=== PATIENT | female | born 1960 | race Caucasian/White ===

== ENCOUNTER → 2020-05-30 09:50 | Outpatient (BNVA) | payer OTHER, SELFPAY | PROVIDERS: Family Provider Nurse Practitioner Family; PCP Nurse Practitioner Family; Visit Provider Nurse Practitioner Women's Health | DX: R87.619 Unspecified abnormal cytological findings in specimens from cervix uteri (principal) | CPT/HCPCS: 88175 ==

== ENCOUNTER 2020-09-18 10:10 | Outpatient (CLI) | payer OTHER, SELFPAY ==
--- NOTE | 2020-09-18 10:19 | MM_ITS ---
WS: [id number] SCREENING DIGITAL MAMMOGRAM WITH CAD HISTORY: SCREENING COMPARISON: 07/09/2019 and April 10, 2015 Bilateral CC and MLO views submitted. Computer aided detection analyzed. Breast composition: The breasts are heterogeneously dense, which may obscure small masses. Partially visualized nodule near 12:00 RIGHT breast. Nodule measures 8 mm. No additional suspicious findings. MM/[place] [id number] IMPRESSION: BI-RADS: 0-Incomplete: Need additional imaging evaluation FOLLOW UP: Need Additional Imaging RIGHT breast: Spot compression views (CC and MLO). True ML. Ultrasound to follo w if abnormality persists.
== END 2020-09-18 10:11 | disposition home or self-care (01) ==
LOC: RADSHAW 10:12
PROVIDERS: PCP Nurse Practitioner Family; Visit Provider Nurse Practitioner Family
DX: Z12.31 Encounter for screening mammogram for malignant neoplasm of breast (principal); N63.15 Unspecified lump in the right breast, overlapping quadrants
CPT/HCPCS: 77067

== ENCOUNTER 2020-10-05 08:33 | Outpatient (CLI) | payer OTHER, SELFPAY ==
--- NOTE | 2020-10-05 09:00 | MM_ITS ---
WS: [id number] ADDITIONAL VIEWS RIGHT BREAST RIGHT breast ultrasound, limited HISTORY: abnormal mammo COMPARISON: 09/18/2020, 07/09/2019 and 07/11/2015 Compression views right CC and MLO projection. True ML also submitted. Asymmetry central to the nipple on the CC projection nearly completely resolves. There are a few scat tered hypodensities which are slightly different as compared to prior studies. Ultrasound to follow. RIGHT breast ultrasound, limited. Hypoechoic nodule measuring 7 x 4 x 7 mm. Nodule is at 12:00, 3 cm from the nipple posteriorly. This may correspond to the asymmetry seen on the mammogram. MM/[place] [id number] IMPRESSION: BI-RADS: 3-Probably Benign FOLLOW-UP: 6 Month Follow-up Hypoechoic nodule 12:00 3 cm from the nipple seen by ultrasound. By imaging thi s is probably a complex cyst. This may correspond to the mammographic abnormali ty. I cannot be certain this is the same nodule as I cannot identified on the C C projection. Therefore, recommend 6 month RIGHT mammogram and ultrasound follo w-up.
--- NOTE | 2020-10-05 09:30 | US_ITS ---
WS: [id number] ADDITIONAL VIEWS RIGHT BREAST RIGHT breast ultrasound, limited HISTORY: abnormal mammo COMPARISON: 09/18/2020, 07/09/2019 and 07/11/2015 Compression views right CC and MLO projection. True ML also submitted. Asymmetry central to the nipple on the CC projection nearly completely resolves. There are a few scat tered hypodensities which are slightly different as compared to prior studies. Ultrasound to follow. RIGHT breast ultrasound, limited. Hypoechoic nodule measuring 7 x 4 x 7 mm. Nodule is at 12:00, 3 cm from the nipple posteriorly. This may correspond to the asymmetry seen on the mammogram. US/US breast RT limited* [id number] IMPRESSION: BI-RADS: 3-Probably Benign FOLLOW-UP: 6 Month Follow-up Hypoechoic nodule 12:00 3 cm from the nipple seen by ultrasound. By imaging thi s is probably a complex cyst. This may correspond to the mammographic abnormali ty. I cannot be certain this is the same nodule as I cannot identified on the C C projection. Therefore, recommend 6 month RIGHT mammogram and ultrasound follo w-up.
== END 2020-10-05 08:34 | disposition home or self-care (01) ==
LOC: RADSHAW 08:34
PROVIDERS: PCP Nurse Practitioner Family; Visit Provider Nurse Practitioner Family
DX: R92.8 Other abnormal and inconclusive findings on diagnostic imaging of breast (principal); N63.15 Unspecified lump in the right breast, overlapping quadrants
CPT/HCPCS: 76642; 77065

== ENCOUNTER → 2021-01-12 10:43 | Outpatient (BNVA) | payer OTHER, SELFPAY | PROVIDERS: PCP Nurse Practitioner Family; Visit Provider Nurse Practitioner Family | DX: Z13.6 Encounter for screening for cardiovascular disorders (principal); K21.9 Gastro-esophageal reflux disease without esophagitis; I10 Essential (primary) hypertension; Z79.899 Other long term (current) drug therapy | CPT/HCPCS: 80061; 82947; 83036 ==

== ENCOUNTER → 2021-02-12 11:24 | Outpatient (BNVA) | payer OTHER, SELFPAY | PROVIDERS: PCP Nurse Practitioner Family; Referring Provider Nurse Practitioner Family; Visit Provider Orthopaedic Surgery | DX: M25.559 Pain in unspecified hip (principal); M25.562 Pain in left knee; G89.29 Other chronic pain | CPT/HCPCS: 73502; 73560; 73565 ==

== ENCOUNTER → 2021-05-08 11:50 | Outpatient (BNVA) | payer SELFPAY | PROVIDERS: PCP Nurse Practitioner Family; Visit Provider Dermatology | DX: Z01.89 Encounter for other specified special examinations (principal) ==

== ENCOUNTER → 2021-05-31 09:15 | Outpatient (BNVA) | payer OTHER, SELFPAY | PROVIDERS: PCP Nurse Practitioner Family; Visit Provider Nurse Practitioner Women's Health | DX: Z01.419 Encounter for gynecological examination (general) (routine) without abnormal findings (principal); R87.619 Unspecified abnormal cytological findings in specimens from cervix uteri; R92.8 Other abnormal and inconclusive findings on diagnostic imaging of breast; N95.1 Menopausal and female climacteric states; Z13.820 Encounter for screening for osteoporosis | CPT/HCPCS: 88175 ==

== ENCOUNTER → 2021-12-07 00:01 | Outpatient (BNVA) | payer OTHER, SELFPAY | PROVIDERS: PCP Nurse Practitioner Family; Visit Provider Nurse Practitioner Family | DX: Z20.822 Contact with and (suspected) exposure to COVID-19 (principal) | CPT/HCPCS: 87635 ==

== ENCOUNTER 2022-02-14 18:12 | Emergency (ER) | payer OTHER, SELFPAY ==
[2022-02-14 18:29] VITALS: BP 173/99; PULSE 73; RESP 18; TEMP 36.6; O2SAT 100; BMI 31.9
--- NOTE | 2022-02-14 18:39 | W.ED.BACK ---
HPI - Back Pain/Injury General: Chief Complaint: Chest Pain Stated Complaint: pain between shoulders, faint feeling Time Seen by Provider: 02/14/22 18:39 History of Present Illness: Ms. Christensen is a 61-year-old lady with cardiac risk factors of hypertension and obesity who presents to the emergency department due to abnormal event of chest discomfort. She reports essentially being at her baseline health until the past couple days where she has had intermittent episodes of discomfort described as pressure in the middle of her chest. There is no significant radiation or other typical cardiac features until today. At work she had sudden onset of another episode associated with lightheadedness and unwell feeling. This has persisted unlike previous events. She denies other associated typical cardiac features. There is mild radiation towards her back and skipping sensation in her heart. Intensity of symptoms at worst moderate to severe. Currently improved however still present. No other specific changes in health, exacerbating, or alleviating factors identified. Onset (ago): day(s) Timing: improved Severity: moderate Quality: other Review of Systems General: Reports: 10 or more systems reviewed and unremarkable except in HPI and below PFSH ED PFSH: Medical History Hiatal hernia MVP (mitral valve prolapse) Surgical History H/O dilation and curettage H/O knee surgery (~2017) H/O tubal ligation History of appendectomy Family History Mother Heart disease Hypertension Hyperlipidemia Father Heart disease Hypertension Hyperlipidemia Family/Other Ovarian cancer Maternal Cousin Grandmother Breast cancer Paternal Social History Additional social history: - Tobacco use: Denies Alcohol use: Denies Drug use: Denies Physical Exam Const: COMMON NORMALS: alert GENERAL APPEARANCE: cooperative and well developed HENMT: COMMON NORMALS: normocephalic and atraumatic HEAD & SCALP: normocephalic and atraumatic Eye: COMMON NORMALS: conjunctivae normal CONJUNCTIVA: Yes conjunctivae normal SCLERA: sclerae normal Neck/C-Spine: COMMON NORMALS: supple GENERAL: Yes trachea midline Resp: COMMON NORMALS: normal respiratory effort and clear to auscultation bilaterally EFFORT & INSPECTION: Yes able to speak in complete sentences AUSCULTATION: clear to auscultation bilaterally Cardio: COMMON NORMALS: regular rate, regular rhythm and Peripheral pulses 2+ throughout RATE: regular rate RHYTHM: regular rhythm PERIPHERAL PULSES: Peripheral pulses 2+ throughout GI: COMMON NORMALS: Soft to palpation PALPATION: Yes Soft to palpation and No Tenderness to palpation present (GI) Extremity: GENERAL: Yes normal exam except as noted and No edema Neuro: COMMON NORMALS: moves all extremities SENSORIUM/ORIENTATION: Yes alert and No Orientation impaired Psych: COMMON NORMALS: mental status grossly normal and Normal thought process present THOUGHT PROCESS: Normal thought process present Course ED course: - Patient was seen and evaluated by me at bedside - Patient placed on cardiac monitors, IV access obtained - Initial evaluation notable for exam as above - Labs and xrays personally interpreted by me. EKG was performed at 1841 and 2127 personally directed by me. Sinus rhythm. No STEMI. - Labs notable for no leukocytosis, normal hemoglobin. Electrolytes without acute derangement to explain symptoms. Delta troponin negative. D-dimer is elevated. - Imaging notable for no lobar consolidation or pneumothorax. Given the description of symptoms D-dimer was obtained based on Wells criteria. CTA negative for PE or other acute abnormality - Upon serial reexamination after treatment the patient was similar - Based on patient history, evaluation, and testing as interpreted the most likely cause of the patient's condition is chest pain equivalent of uncertain etiology. - The results of ED evaluation were discussed with the patient including possible disposition options. I discussed heart score including risk stratification and estimated risk of major adverse cardiac events. Patient prefers outpatient cardiac evaluation. I discussed prescriptions and/or symptomatic cares (if applicable) including appropriate and responsible use, followup plan, and return precautions. The patient verbalized understanding and felt safe for discharge. - Patient discharged in satisfactory condition. Note: Click bubbles or prepopulated roa in note writing are used for assistance with data collection and billing and are inherently more limited than narrative and other text portions of this note. Please use narrative for additional clinical history and defer to narrative/free test for any case of contradictory information. If information appears in only free text or click bubble it should be considered present or absent as reported. Please contact note senior writer for clarifications of clinical information or contradictory information. MDM is a brief summary, contradictory or erroneous seeming information should be clarified and full note should be reviewed. Vital Signs: Vital signs: Vital Signs Temperature 97.9 F 02/14/22 18:29 Pulse Rate 73 02/14/22 22:24 Respiratory Rate 19 H 02/14/22 22:24 Blood Pressure 159/99 02/14/22 22:24 Pulse Oximetry 95 02/14/22 22:24 MDM - Back Pain/Injury Medical Decision Making 61 yo lady presenting with back/chest pain. Negative ED evaluations. Will plan for outpatient further cardiac testing. Medical Records I reviewed the patient's medical records. Labs I reviewed the patient's lab results. : 02/14/22 18:49 02/14/22 18:49 Radiology Impressions Chest X-Ray 02/14/22 18:51 IMPRESSION: No acute findings. Chest CTA 02/14/22 20:16 IMPRESSION: Negative CTA chest. No acute abnormality identified. Laboratory Results WBC 6.4 10^3/uL (4.0-10.0) 02/14/22 18:49 RBC 4.19 10^6/uL (4.1-5.3) 02/14/22 18:49 Hgb 12.6 g/dL (11.5-15.3) 02/14/22 18:49 Hct 38.8 % (37.0-47.0) 02/14/22 18:49 MCV 92.6 fl (81-99) 02/14/22 18:49 MCH 30.1 pg (28.0-34.0) 02/14/22 18:49 MCHC 32.5 g/dL (30.0-36.0) 02/14/22 18:49 RDW 12.0 % (12.1-15.1) L 02/14/22 18:49 Plt Count 338 10^3/cmm (130-400) 02/14/22 18:49 MPV 9.0 fL (7.4-10.4) 02/14/22 18:49 Neut % (Auto) 59.1 % 02/14/22 18:49 Lymph % (Auto) 28.6 % 02/14/22 18:49 [place] % (Auto) 8.0 % 02/14/22 18:49 Eos % (Auto) 2.7 % 02/14/22 18:49 Baso % (Auto) 1.4 % 02/14/22 18:49 Neut # (Auto) 3.79 10^3/uL (1.8-7.7) 02/14/22 18:49 Lymph # (Auto) 1.8 10^3/uL (0.8-4.8) 02/14/22 18:49 [place] # (Auto) 0.5 10^3/uL (0.2-0.9) 02/14/22 18:49 Eos # (Auto) 0.2 10^3/uL (0.0-0.8) 02/14/22 18:49 Baso # (Auto) 0.1 10^3/uL (0.0-0.1) 02/14/22 18:49 Nucleated RBC % (auto) 0 % 02/14/22 18:49 Nucleated RBCs # 0.0 /100WBC 02/14/22 18:49 D-Dimer 0.96 ug/mIFEU (0-0.59) H 02/14/22 19:45 Sodium 138 mmol/L (136-145) 02/14/22 18:49 Potassium 3.7 mmol/L (3.5-5.1) 02/14/22 18:49 Chloride 102 mmol/L (98-107) 02/14/22 18:49 Carbon Dioxide 25 mmol/L (22-29) 02/14/22 18:49 Anion Gap 14.7 (5-19) 02/14/22 18:49 BUN 22 mg/dL (8-23) 02/14/22 18:49 Creatinine 0.7 mg/dL (0.5-0.9) 02/14/22 18:49 GFR Calculation 85.1 mL/min (90-130) L 02/14/22 18:49 Glucose 94 mg/dL (65-115) 02/14/22 18:49 Calculated Osmolality 289 mOsm/kg (285-295) 02/14/22 18:49 Calcium 9.7 mg/dL (8.5-10.5) 02/14/22 18:49 Total Bilirubin 0.2 mg/dL (0.15-1.2) 02/14/22 18:49 AST 21 U/L (0-32) 02/14/22 18:49 ALT 22 U/L (0-33) 02/14/22 18:49 Alkaline Phosphatase 84 IU/L (35-105) 02/14/22 18:49 Troponin T Baseline 9 ng/L (0-10) 02/14/22 18:49 Troponin T 120 Minute 8.72 ng/L (0-10) 02/14/22 21:28 Delta Troponin T -0.28 ABS# (0-10) L 02/14/22 21:28 NT-Pro-B Natriuret Pep 37 pg/mL (0-125) 02/14/22 18:49 Total Protein 6.7 g/dL (6.6-8.7) 02/14/22 18:49 Albumin 4.5 g/dL (3.5-5.2) 02/14/22 18:49 Globulin 2.2 g/dL (1.3-4.6) 02/14/22 18:49 Lipase 25 U/L (13-60) 02/14/22 18:49 Discharge Plan Discharge Patient Disposition: Home Clinical Impression: Chest pain, Lightheadedness, Heart palpitations, Hypertension Condition: Stable Prescriptions: No Action naproxen sodium 220 mg capsule 440 mg PO BID 0RF fluticasone propionate [Flonase Allergy Relief] 50 mcg/actuation spray,suspension 2 spray INTRANASAL DAILY 90 Days Qty: 15.8 11RF Rx Instructions: administer into each nostril venlafaxine [Effexor XR] 150 mg capsule,extended release 24hr 150 mg PO QDAY Qty: 90 3RF dexlansoprazole [Dexilant] 60 mg capsule,biphase delayed releas 60 mg PO DAILY Qty: 90 3RF diclofenac sodium 75 mg tablet,delayed release (DR/EC) 75 mg PO BID PRN (Reason: pain) Qty: 180 3RF nitroglycerin 0.4 mg tablet, sublingual 0.4 mg sublingual Q5M PRN (Reason: chest pain) Qty: 30 2RF Rx Instructions: do not exceed 3 doses per episode Probiotic and Acidophilus 300-250 million cell-mg Capsule 1 cap PO PRN PRN (Reason: Digestion) 0RF losartan-hydrochlorothiazide 100-12.5 mg tablet 1 tab PO DAILY 0RF Discharge Orders: Discharge ED (Routine); Ordered 02/14/22 Ordered By: Alfred Awad Referrals: Agnes,Joseline, [facility]FFER [Primary Care Provider] - Discharge Diet: Usual diet Discharge Activity: Resume usual activity Patient Instructions: Chest Pain (ED), Heart Palpitations (ED), Hypertension (ED), Lightheadedness (ED) Activity Restrictions/Additional Instructions: Thank you for visiting the emergency department. You were seen and evaluated for an episode of chest discomfort associated with higher blood pressure, palpitations, and lightheadedness. The exact cause of your symptoms is unclear. As discussed you do require further cardiac evaluation and I will message our senior case manager with regards to scheduling this. Please follow-up with your primary care provider. Please return to the emergency department for recurrent symptoms, worsening symptoms, or anything else that you are concerned about and feel needs emergency department evaluation. Coding Level of Care Code ED Real Estate Rep for [place] Exam Comprehensive
--- NOTE | 2022-02-14 18:51 | XRR_ITS ---
PROCEDURE INFORMATION: Exam: XR Chest Exam date and time: 02/14/2022 7:11 PM Age: 61 years old Clinical indication: Patient HX: Chest discomfort today; Additional info: Chest pain TECHNIQUE: Imaging protocol: XR of the chest. Views: 1 view. COMPARISON: CR Upper GI w/ Air* [id number] 06/20/2017 8:53 AM FINDINGS: Lungs: Unremarkable. No consolidation. Pleural spaces: Unremarkable. No pleural effusion. No pneumothorax. Heart/Mediastinum: Unremarkable. No cardiomegaly. Bones/joints: Unremarkable. XR/XR chest 1V portable [id number] IMPRESSION: No acute findings.
--- NOTE | 2022-02-14 18:52 | ECG_ITS ---
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 Measurements Intervals [place] Rate: 75 P: 59 CO: 186 QRS: 79 QRSD: 95 T: 60 QT: 385 QTc: 433 Interpretive Statements SINUS RHYTHM No previous ECG available for comparison Electronically Signed On 02-15-2022 11:02:01 CDT by Eunice Toney M.D. [id number] f
[2022-02-14 18:58] LABS: Basophils # 0.1 10^3/uL (0.0-0.1); Basophils % 1.4 %; Eosinophils # 0.2 10^3/uL (0.0-0.8); Eosinophils % 2.7 %; Hematocrit 38.8 % (37.0-47.0); Hemoglobin 12.6 g/dL (11.5-15.3); Lymphocytes # 1.8 10^3/uL (0.8-4.8); Lymphocytes % 28.6 %; Mean Corpuscular HGB Conc 32.5 g/dL (30.0-36.0); Mean Corpuscular Hemoglobin 30.1 pg (28.0-34.0); Mean Corpuscular Volume 92.6 fl (81-99); Monocytes # 0.5 10^3/uL (0.2-0.9); Neutrophils # 3.79 10^3/uL (1.8-7.7); Neutrophils % 59.1 %; Nucleated Red Blood Cells % 0 %; Platelet Count 338 10^3/cmm (130-400); Red Blood Count 4.19 10^6/uL (4.1-5.3); White Blood Count 6.4 10^3/uL (4.0-10.0)
[2022-02-14 19:15] VITALS: BP 214/122; PULSE 83; RESP 20; O2SAT 96
[2022-02-14] MEDS: nitroglycerin 0.4 mg sublingual Tablet SUBLINGUAL (19:20)
[2022-02-14 19:24] LABS: Troponin(5th) Baseline 9 ng/L (0-10)
[2022-02-14 19:26] LABS: Alanine Aminotransferase 22 U/L (0-33); Albumin Level 4.5 g/dL (3.5-5.2); Alkaline Phosphatase 84 IU/L (35-105); Anion Gap 14.7 (5-19); Aspartate Amino Transferase 21 U/L (0-32); Blood Urea Nitrogen 22 mg/dL (8-23); Calcium 9.7 mg/dL (8.5-10.5); Carbon Dioxide 25 mmol/L (22-29); Chloride 102 mmol/L (98-107); Globulin 2.2 g/dL (1.3-4.6); Glomerular Filtration Rate 85.1 mL/min (90-130); Glucose 94 mg/dL (65-115); Lipase 25 U/L (13-60); Osmolality Calculated 289 mOsm/kg (285-295); Potassium 3.7 mmol/L (3.5-5.1); Sodium 138 mmol/L (136-145); Total Bilirubin 0.2 mg/dL (0.15-1.2); Total Protein 6.7 g/dL (6.6-8.7)
[2022-02-14 19:29] LABS: NT Pro B Type Natriuretic Pept 37 pg/mL (0-125)
[2022-02-14 19:46] VITALS: BP 148/92; PULSE 74; RESP 20; O2SAT 97
[2022-02-14 20:13] LABS: D Dimer 0.96 ug/mIFEU (0-0.59)
--- NOTE | 2022-02-14 20:16 | CTR_ITS ---
PROCEDURE INFORMATION: Exam: CTA Chest With Contrast Exam date and time: 02/14/2022 8:32 PM Age: 61 years old Clinical indication: Chest wall pain; Patient HX: Chest pain with radiation to back, elevated d-dimer; Additional info: Chest pain, radiation to back, lightheaded, elevated d dimer TECHNIQUE: Imaging protocol: Computed tomographic angiography of the chest with contrast. 3D rendering (Not supervised by radiologist): MIP and/or 3D reconstructed images were created by the technologist. Radiation optimization: All CT scans at this facility use at least one of these dose optimization techniques: automated exposure control; mA and/or kV adjustment per patient size (includes targeted exams where dose is matched to clinical indication); or iterative reconstruction. Contrast material: OMNI 350; Contrast volume: 69 ml; Contrast route: INTRAVENOUS (IV); COMPARISON: CR XR chest 1V portable [id number] 02/14/2022 7:11 PM RADIATION DOSE METRICS: Total DLP (mGy-cm): 499.86 FINDINGS: Pulmonary arteries: Normal. No pulmonary emboli. Aorta: Unremarkable. No aortic aneurysm. No aortic dissection. Lungs: Unremarkable. No consolidation. No masses. Pleural spaces: Unremarkable. No pneumothorax. No pleural effusion. Heart: Unremarkable. No cardiomegaly. No pericardial effusion. Mediastinal space: Unremarkable thoracic esophagus. Lymph nodes: Unremarkable. No enlarged lymph nodes. Diaphragm: Large hiatal hernia. Bones/joints: Unremarkable. No acute fracture. Soft tissues: Unremarkable. CT/CT angio chest PE protcl [id number] IMPRESSION: Negative CTA chest. No acute abnormality identified.
[2022-02-14] MEDS: iohexol 350 mg/mL 100 mL Btl IV (20:30)
--- NOTE | 2022-02-14 20:52 | ECG_ITS ---
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 Measurements Intervals [place] Rate: 69 P: 44 NM: 178 QRS: 44 QRSD: 96 T: 40 QT: 412 QTc: 442 Interpretive Statements SINUS RHYTHM POSSIBLE LEFT ATRIAL ENLARGEMENT [-0.1mV P-WAVE IN V1/V2] Compared to ECG 02/14/2022 18:41:15 No significant changes Electronically Signed On 02-15-2022 11:16:59 CDT by Eunice Toney M.D. [email or web address]/[id number] f
[2022-02-14 22:00] LABS: Troponin 5 2HR 8.72 ng/L (0-10)
[2022-02-14 22:05] LABS: Troponin 5 2HR Delta -0.28 ABS# (0-10)
[2022-02-14 22:24] VITALS: BP 159/99; PULSE 73; RESP 19; O2SAT 95
--- NOTE | 2022-02-15 15:18 | DCPLANNER ---
Addendum entered by Mahsa Jackson 03/21/22 19:49: Patients insurance denied the request for the stress test. Addendum entered by Mahsa Jackson 02/18/22 09:36: Renita from centralized scheduling confirmed receipt of fax for stress test. Original Note: manager sports had message to schedule an outpatient stress test for patient. manager sports called patient to confirm that patient wanted to have the stress test ordered and to confirm who patient sees for primary care physician. Patient stated that she did want the test ordered and that her primary care physician is Joseline Alarcon. manager sports faxed signed order to centralized scheduling, who will call patient with appointment information.
== END 2022-02-14 22:26 | disposition home or self-care (01) ==
PROVIDERS: Emergency Provider Emergency Medicine; PCP Nurse Practitioner Family
DX: R07.9 Chest pain, unspecified (principal); R42 Dizziness and giddiness; R00.2 Palpitations; I10 Essential (primary) hypertension; I34.1 Nonrheumatic mitral (valve) prolapse; Z82.49 Family history of ischemic heart disease and other diseases of the circulatory system
CPT/HCPCS: 71045; 71275; 80053; 83690; 83880; 84484; 85025; 85378; 93005; 99284; Q9967

== ENCOUNTER 2022-04-18 08:38 | Outpatient (CLI) | payer OTHER, SELFPAY ==
--- NOTE | 2022-04-18 08:50 | MM_ITS ---
WS: [id number] BILATERAL 3D TOMOSYNTHESIS DIGITAL SCREENING MAMMOGRAPHY WITH CAD CLINICAL INFORMATION: SCREENING HISTORY: Screening mammogram. No current complaints. COMPARISON: October 06, 2020 TECHNIQUE: Bilateral CC and MLO views. FINDINGS: Scattered fibroglandular densities bilaterally. No suspicious focal mass, asymmetry, calcifications, or architectural distortion. No evidence of malignancy. MM/[place] [id number] IMPRESSION: BI-RADS: 1-Negative FOLLOW UP: 1 Year Follow-up Recommend return to annual screening mammography.
== END 2022-04-18 08:39 | disposition home or self-care (01) ==
LOC: RADSHAW 08:38
PROVIDERS: PCP Nurse Practitioner Family; Visit Provider Nurse Practitioner Family
DX: Z12.31 Encounter for screening mammogram for malignant neoplasm of breast (principal)
CPT/HCPCS: 77063; 77067

== ENCOUNTER 2022-07-05 14:25 | Outpatient (CLI) | payer OTHER, SELFPAY ==
--- NOTE | 2022-07-05 14:30 | XR_ITS ---
WS: [id number] SCREENING DEXA SCAN [place] CLINICAL INFORMATION: Z78.0 - Asymptomatic menopausal state COMPARISON: None. FINDINGS: The L1-L4 bone mineral density measures 1.055 g/cm2. This corresponds to a T score score of -1.0 and Z score of -0.3. Left femoral neck bone mineral density measures 1.029 g/cm2. This corresponds to a T score of 0.2 and Z score of 0.8. Right femoral neck bone mineral density measures 0.916 g/cm2. This corresponds to a T score -0.7of an d Z score of -0.1. Mean femoral neck bone mineral density measures 0.973 g/cm2. This corresponds to a T score of -0.3 an d Z score of 0.3. XR/XR DEXA axial skeleton* [id number] IMPRESSION: Osteopenia lumbar spine at the lower end of the range. Normal bone mineralizati on femoral necks. Patient's FRAX calculated 10 year probability for major osteoporotic fracture i s 18.1 % and osteoporotic hip fracture is 1.3%.
== END 2022-07-05 14:26 | disposition home or self-care (01) ==
LOC: RAD 14:26
PROVIDERS: PCP Nurse Practitioner Family; Visit Provider Nurse Practitioner Women's Health
DX: Z13.820 Encounter for screening for osteoporosis (principal); Z78.0 Asymptomatic menopausal state; M85.88 Other specified disorders of bone density and structure, other site
CPT/HCPCS: 77080

== ENCOUNTER 2022-07-10 15:04 | Outpatient (CLI) | payer OTHER, SELFPAY ==
--- NOTE | 2022-07-10 15:15 | USCV_ITS ---
Fermin Jess Age: 62 Gender: F : 1960 Exam Date: 07/10/2022 15:16 Ordering Phys: Adilson Escobar M.D ([email or web address]) Technologist: Benjamin Steward [place] [facility] [place]ication: murmur BP: 150 / 90 HR: 74 Rhythm: Sinus Technical Quality: Adequate MEASUREMENTS (Male / Female) Normal Values 2D ECHO LV Diastolic Diameter PLAX 5.0 cm 4.2 - 5.9 / 3.9 - 5.3 cm LV Systolic Diameter PLAX 2.8 cm IVS Diastolic Thickness 1.0 cm 0.6 - 1.0 / 0.6 - 0.9 cm IVS Systolic Thickness 1.1 cm LVPW Diastolic Thickness 1.0 cm 0.6 - 1.0 / 0.6 - 0.9 cm LVPW Systolic Thickness 1.3 cm LVOT Diameter 2.0 cm LV Ejection Fraction 2D Teich 74.4 % LV Ejection Fraction MOD 2C 66.2 % LV Ejection Fraction 2C AL 67.8 % LA Diameter 3.1 cm LA Width 3.5 cm LA Height 3.6 cm RA Width 2.9 cm RA Height 3.6 cm Aorta at Sinotubular Diameter 2.3 cm IVC Diameter 1.5 cm M-MODE Aortic Annulus Diameter 2.4 cm LA Ao Ratio MM 1.2 DOPPLER AV Peak Velocity 131.7 cm/s LVOT Peak Velocity 99.0 cm/s AV Area Cont Eq vti 2.2 cm squared AV Area Cont Eq pk 2.4 cm squared MV Peak Velocity 111.0 cm/s MV Area PHT 3.7 cm squared Mitral E to A Ratio 0.9 MV E' Velocity 48.5 cm/s Mitral E to MV E' Ratio 7.9 Mitral E to LV E' Lateral Ratio 9.0 Mitral E to LV E' Septal Ratio 7.0 TR Peak Velocity 337.4 cm/s TR Peak Gradient 45.5 mmHg TR Mean Velocity 278.0 cm/s TR Mean Gradient 35.4 mmHg TR Velocity Time Integral 112.5 cm Right Atrial Pressure 3.0 mmHg Pulmonary Artery Systolic Pressu 48.5 mmHg RV Acceleration Time 0.1 s RV Ejection Time 0.3 s RV AcT/ET 0.4 FINDINGS Left Ventricle Left ventricle is normal in size. LV systolic function is normal with EF of 55 to 60%. No regional wall motion abnormalities are seen. Grade 1 diastolic dysfunction. Right Ventricle Grossly normal Right Atrium Normal in size Left Atrium Normal in size Mitral Valve Mild mitral annular calcification is seen. Mild mitral regurgitation. Aortic Valve Grossly normal aortic valve. No significant stenosis or regurgitation. Tricuspid Valve Trace tricuspid regurgitation. Insufficient TR jet to calculate RVSP. Pulmonic Valve Not well-visualized Pericardium Normal Aorta Normal in size IVC CONCLUSIONS LV systolic function is normal with EF of 55 to 60%. Grade 1 diastolic dysfunction. Mild mitral annular calcification is seen. Mild mitral regurgitation. Trace tricuspid regurgitation. No comparison studies are available. Adilson Escobar MD (Electronically Signed) Final Date: 24 July 2022 21:12 S
== END 2022-07-10 15:05 | disposition home or self-care (01) ==
LOC: RAD 15:04
PROVIDERS: PCP Nurse Practitioner Family; Visit Provider Internal Medicine
DX: R01.1 Cardiac murmur, unspecified (principal); I08.1 Rheumatic disorders of both mitral and tricuspid valves
CPT/HCPCS: 93306

== ENCOUNTER 2022-09-09 09:14 | Outpatient (CLI) | payer OTHER, SELFPAY ==
--- NOTE | 2022-09-09 09:30 | US_ITS ---
WS: [id number] RIGHT UPPER QUADRANT ULTRASOUND HISTORY: R10.11 - Right upper quadrant pain COMPARISON: None available. Liver: 14.3 cm in length. Normal size liver. No bile duct dilatation or mass. Portal Vein: Normal hepatopetal flow with monophasic waveform. Gallbladder: Normally distended gallbladder with no stones or wall thickening. CBD: 0.3 cm Pancreas: Normal size and echogenicity. Right kidney: 9.7 cm in length. Normal size and echogenicity. No hydronephrosis or mass. Aorta and IVC: Unremarkable abdominal aorta and IVC. No ascites. US/US gall bladder [id number] IMPRESSION: Normal RIGHT upper quadrant ultrasound.
== END 2022-09-09 09:15 | disposition home or self-care (01) ==
PROVIDERS: PCP Nurse Practitioner Family; Visit Provider Nurse Practitioner Family
DX: R10.11 Right upper quadrant pain (principal)
CPT/HCPCS: 76705

== ENCOUNTER 2022-10-09 07:41 | Outpatient (CLI) | payer OTHER, SELFPAY ==
--- NOTE | 2022-10-09 08:00 | NM_ITS ---
WS: [id number] NUCLEAR MEDICINE HIDA SCAN CLINICAL INFORMATION: R10.11 - Right upper quadrant pain TECHNIQUE: Following intravenous administration of 4.9 mCi of technetium 99m mebrofenin, images of th e abdomen were obtained over the course of 60 minutes. Next, gallbladder ejection fraction was determ ined by obtaining preprandial and one-hour postprandial images of the gallbladder following oral ming stion of Ensure. COMPARISON: Ultrasound gallbladder September 09, 2022 FINDINGS: Normal hepatic uptake at 5 minutes. Normal hepatic excretion. Gallbladder is visualized by 15 minutes . No evidence of acute cholecystitis. Normal common bile duct and small bowel activity. Gallbladder ejection fraction 92% within normal limits. No evidence of chronic cholecystitis. NM/NM hepatobiliary w phar* [id number] IMPRESSION: 1. No evidence of acute or chronic cholecystitis. 2. Gallbladder ejection fraction 92% within normal limits.
== END 2022-10-09 07:42 | disposition home or self-care (01) ==
PROVIDERS: PCP Nurse Practitioner Family; Visit Provider Nurse Practitioner Family
DX: R10.11 Right upper quadrant pain (principal)
CPT/HCPCS: 78227; A9537

== ENCOUNTER 2023-07-18 07:22 | Outpatient (CLI) | payer OTHER, SELFPAY ==
--- NOTE | 2023-07-18 07:27 | MM_ITS ---
WS: [id number] SCREENING DIGITAL TOMOSYNTHESIS MAMMOGRAM WITH CAD HISTORY: Z12.31 - Encounter for screening mammogram for malignant ... COMPARISON: 04/18/2022, 09/18/2020, 07/09/2019 Bilateral CC and MLO with tomosynthesis views submitted. Synthetic mammography reviewed. Computer aid ed detection analyzed. Breast composition: There are scattered areas of fibroglandular density. No suspicious masses, microc alcifications or architectural distortion. IMPRESSION: MM/[place] [id number] BI-RADS: 1-Negative FOLLOW UP: 1 Year Follow-up
== END 2023-07-18 07:23 | disposition home or self-care (01) ==
PROVIDERS: PCP Nurse Practitioner Family; Visit Provider Nurse Practitioner Women's Health
DX: Z12.31 Encounter for screening mammogram for malignant neoplasm of breast (principal)
CPT/HCPCS: 77063; 77067

== ENCOUNTER 2024-03-19 14:58 | Outpatient (CLI) | payer OTHER, SELFPAY ==
--- NOTE | 2024-03-19 15:15 | USCV_ITS ---
Jess Christensen Age: 63 Gender: F : 1960 Exam Date: 03/19/2024 15:20 Ordering Phys: Adilson Escobar M.D ([email or web address]) Technologist: Benjamin Steward Exam Location: [facility] [place] Indication: mitral regurg BP: 136 / 86 HR: 63 Rhythm: Sinus Technical Quality: Adequate MEASUREMENTS (Male / Female) Normal Values 2D ECHO LV Diastolic Diameter PLAX 5.0 cm 4.2 - 5.9 / 3.9 - 5.3 cm IVS Diastolic Thickness 1.2 cm 0.6 - 1.0 / 0.6 - 0.9 cm IVS Systolic Thickness 1.5 cm LVPW Diastolic Thickness 1.0 cm 0.6 - 1.0 / 0.6 - 0.9 cm LVPW Systolic Thickness 2.0 cm LVOT Diameter 2.1 cm LV Ejection Fraction 2D Teich 81.1 % LV Ejection Fraction MOD 2C 76.7 % LV Ejection Fraction 2C AL 77.7 % LA Diameter 3.5 cm RA Systolic Volume 4C AL 34.0 ml RA Systolic Volume 4C MOD 33.3 ml LA Sys Volume AL 43.8 cm cubed LA Sys Volume Index AL 22.2 cm cubed/m squared Aorta at Sinotubular Diameter 2.8 cm IVC Diameter 1.4 cm M-MODE LA Ao Ratio MM 1.4 AV Cusp Separation MM 1.7 cm DOPPLER AV Peak Velocity 127.7 cm/s LVOT Peak Velocity 95.0 cm/s AV Area Cont Eq vti 2.8 cm squared AV Area Cont Eq pk 2.6 cm squared MV Peak Velocity 122.0 cm/s MV Area PHT 3.4 cm squared Mitral E to A Ratio 0.8 TV Peak Velocity 257.5 cm/s TR Peak Velocity 295.0 cm/s TR Peak Gradient 34.8 mmHg TR Mean Velocity 220.0 cm/s TR Mean Gradient 21.9 mmHg TR Velocity Time Integral 72.6 cm PV Peak Velocity 102.0 cm/s RV Ejection Time 0.3 s FINDINGS Left Ventricle Left ventricle is normal in size. LV systolic function is normal with EF of 55 to 60%. No regional wall motion abnormalities are seen. Grade 1 diastolic dysfunction. Right Ventricle Normal in size and function Right Atrium Normal in size Left Atrium Normal in size Mitral Valve Mild mitral annular calcification. Mild mitral regurgitation. Aortic Valve Structurally normal aortic valve. No significant stenosis or regurgitation. Tricuspid Valve Trace tricuspid regurgitation. Pulmonary artery systolic pressure is normal. Pulmonic Valve Trace pulmonic regurgitation. Pericardium Normal Aorta Normal in size IVC Appears to be normal CONCLUSIONS LV systolic function is normal with EF of 55 to 60% Grade 1 diastolic dysfunction. Mild mitral regurgitation Trace tricuspid regurgitation Trace pulmonic regurgitation. Compared to prior echocardiogram from 2021, no significant changes are seen Adilson Escobar MD (Electronically Signed) Final Date: 28 Mar 2024 14:39 S
== END 2024-03-19 14:59 | disposition home or self-care (01) ==
LOC: RAD 14:59
PROVIDERS: PCP Nurse Practitioner Family; Visit Provider Internal Medicine
DX: I08.1 Rheumatic disorders of both mitral and tricuspid valves (principal)
CPT/HCPCS: 93306

== ENCOUNTER 2024-08-03 11:38 | Outpatient (CLI) | payer OTHER, SELFPAY ==
--- NOTE | 2024-08-03 11:40 | MM_ITS ---
WS: [id number] BILATERAL 3D TOMOSYNTHESIS DIGITAL SCREENING MAMMOGRAPHY WITH CAD CLINICAL INFORMATION: Z12.31 - Encounter for screening mammogram for malignant ... HISTORY: Screening mammogram. No current complaints. COMPARISON: 2022 TECHNIQUE: Bilateral CC and MLO views. FINDINGS: Scattered fibroglandular densities bilaterally. Progressed ovoid nodular density outer LEFT breast. T his measures approximately 13 mm. Recommend further evaluation with LEFT breast diagnostic mammograph y and ultrasound. Unremarkable RIGHT breast. MM/MM [facility] tomosynthesis [id number] IMPRESSION: DENSITY: There are scattered areas of fibroglandular density. BI-RADS: 0 - Incomplete: Need additional imaging evaluation. FOLLOW UP: Need Additional Imaging Recommend LEFT breast diagnostic mammography and ultrasound.
== END 2024-08-03 11:39 | disposition home or self-care (01) ==
LOC: MOBLMAM 11:39
PROVIDERS: PCP Nurse Practitioner Women's Health; Visit Provider Nurse Practitioner Women's Health
DX: Z12.31 Encounter for screening mammogram for malignant neoplasm of breast (principal); R92.323 Mammographic fibroglandular density, bilateral breasts; N63.21 Unspecified lump in the left breast, upper outer quadrant
CPT/HCPCS: 77063; 77067

== ENCOUNTER 2024-08-20 13:33 | Outpatient (CLI) | payer OTHER, SELFPAY ==
--- NOTE | 2024-08-20 13:30 | XR_ITS ---
WS: [id number] DEXA (DUAL ENERGY X-RAY ABSORPTIOMETRY) Bone mineral density was performed using a SEEC AB machine. HISTORY: Z78.0 - Asymptomatic menopausal state COMPARISON: None available. Lumbar spine BMD (L1-L4): 1.032 g/cm2 T score: -1.2 Z score: -0.4 Total hip BMD: Left: 0.957 g/cm2. T score: -0.4 Z score: 0.3 Right: 0.954 g/cm2. T score: -0.4 Z score: 0.3 10 year probability of a major osteoporotic fracture is 18.8%. XR/XR DEXA axial skeleton* [id number] IMPRESSION: OSTEOPENIA based upon the WHO classification for females.
== END 2024-08-20 13:34 | disposition home or self-care (01) ==
LOC: RAD 13:34
PROVIDERS: PCP Nurse Practitioner Women's Health; Visit Provider Nurse Practitioner Women's Health
DX: Z13.820 Encounter for screening for osteoporosis (principal); Z78.0 Asymptomatic menopausal state; M85.80 Other specified disorders of bone density and structure, unspecified site
CPT/HCPCS: 77080

== ENCOUNTER → 2024-08-23 13:45 | Outpatient (BNVA) | payer OTHER, SELFPAY | PROVIDERS: PCP Nurse Practitioner Family; Visit Provider Nurse Practitioner Family | DX: M25.762 Osteophyte, left knee (principal); M25.862 Other specified joint disorders, left knee; M17.12 Unilateral primary osteoarthritis, left knee; G89.29 Other chronic pain; M25.552 Pain in left hip; M25.562 Pain in left knee; M25.752 Osteophyte, left hip; M16.12 Unilateral primary osteoarthritis, left hip | CPT/HCPCS: 73502; 73562 ==

== ENCOUNTER 2024-09-06 09:00 | Outpatient (CLI) | payer OTHER, SELFPAY ==
--- NOTE | 2024-09-06 09:00 | MM_ITS ---
WS: [id number] LEFT 3D TOMOSYNTHESIS DIGITAL MAMMOGRAPHY WITH CAD CLINICAL INFORMATION: R92.8 - Other abnormal and inconclusive findings on diagn... HISTORY: Additional views COMPARISON: 2023 TECHNIQUE: 3 views of the left breast were obtained. FINDINGS: The left breast is composed of heterogeneous fibroglandular density tissue, which can limit the detec tion of small underlying mass lesions. Again seen is the previously described ovoid nodular density o uter LEFT breast measuring 13 mm. This partially compresses out on the spot compression views. Ultras ound described below. ULTRASOUND BREAST LEFT TECHNIQUE: Ultrasound left breast focused area of concern. CLINICAL INFORMATION: R92.8 - Other abnormal and inconclusive findings on diagn... FINDINGS: At the 2 o'clock position 5 cm from the nipple is an incidental simple cyst measuring 1.0 x 1.0 x 0.6 cm. No other suspicious abnormalities. Recommend return to annual screen mammography. MM/MM diag LT tomosynthesis [id number] IMPRESSION: DENSITY: The breasts are heterogeneously dense, which may obscure small masses. BI-RADS: 2 - Benign FOLLOW UP: 1 Year Follow-up Recommend return to annual screening mammography.
--- NOTE | 2024-09-06 09:30 | US_ITS ---
WS: [id number] LEFT 3D TOMOSYNTHESIS DIGITAL MAMMOGRAPHY WITH CAD CLINICAL INFORMATION: R92.8 - Other abnormal and inconclusive findings on diagn... HISTORY: Additional views COMPARISON: 2023 TECHNIQUE: 3 views of the left breast were obtained. FINDINGS: The left breast is composed of heterogeneous fibroglandular density tissue, which can limit the detec tion of small underlying mass lesions. Again seen is the previously described ovoid nodular density o uter LEFT breast measuring 13 mm. This partially compresses out on the spot compression views. Ultras ound described below. ULTRASOUND BREAST LEFT TECHNIQUE: Ultrasound left breast focused area of concern. CLINICAL INFORMATION: R92.8 - Other abnormal and inconclusive findings on diagn... FINDINGS: At the 2 o'clock position 5 cm from the nipple is an incidental simple cyst measuring 1.0 x 1.0 x 0.6 cm. No other suspicious abnormalities. Recommend return to annual screen mammography. US/US breast LT limited* [id number] IMPRESSION: DENSITY: The breasts are heterogeneously dense, which may obscure small masses. BI-RADS: 2 - Benign FOLLOW UP: 1 Year Follow-up Recommend return to annual screening mammography.
== END 2024-09-06 09:04 | disposition home or self-care (01) ==
PROVIDERS: PCP Nurse Practitioner Family; Visit Provider Nurse Practitioner Women's Health
DX: R92.8 Other abnormal and inconclusive findings on diagnostic imaging of breast (principal); R92.333 Mammographic heterogeneous density, bilateral breasts; N60.02 Solitary cyst of left breast
CPT/HCPCS: 76642; 77061; G0279

== ENCOUNTER → 2024-09-24 09:02 | Outpatient (BNVA) | payer OTHER, SELFPAY | PROVIDERS: PCP Nurse Practitioner Family; Visit Provider Student in an Organized Health Care Education/Training Program | DX: M25.552 Pain in left hip (principal); M17.12 Unilateral primary osteoarthritis, left knee; M25.562 Pain in left knee; G89.29 Other chronic pain | CPT/HCPCS: 73560; 73565 ==

== ENCOUNTER 2024-09-24 10:20 | Outpatient (CLI) | payer OTHER, SELFPAY | END 2024-09-24 10:21 | disposition home or self-care (01) | LOC: SPT 10:21 | PROVIDERS: PCP Nurse Practitioner Family; Visit Provider Student in an Organized Health Care Education/Training Program | DX: Z46.89 Encounter for fitting and adjustment of other specified devices (principal); M17.12 Unilateral primary osteoarthritis, left knee | CPT/HCPCS: L1852 ==

== ENCOUNTER 2025-03-17 05:00 | Outpatient (RCR) | payer OTHER, SELFPAY | END 2025-04-16 23:59 | disposition home or self-care (01) | LOC: TPT 05:00 | PROVIDERS: Visit Provider Student in an Organized Health Care Education/Training Program | DX: Z47.1 Aftercare following joint replacement surgery (principal); Z96.659 Presence of unspecified artificial knee joint | CPT/HCPCS: 97110; 97161 ==

== ENCOUNTER → 2025-03-24 14:07 | Outpatient (BNVA) | payer OTHER, SELFPAY | PROVIDERS: PCP Nurse Practitioner Family; Visit Provider Family Medicine | DX: Z01.818 Encounter for other preprocedural examination (principal) | CPT/HCPCS: 80053; 81003; 85025 ==

== ENCOUNTER 2025-03-29 07:45 | Outpatient (CLI) | payer OTHER, SELFPAY ==
--- NOTE | 2025-03-29 07:45 | CT_ITS ---
WS: [id number] CT LEFT knee, noncontrast HISTORY: LEFT TOTAL KNEE ARTHROPLASTY TECHNIQUE: Protocol for [facility] total knee replacement has been obtained. This includes axial imaging through the LEFT hip, LEFT knee and LEFT ankle. DLP: 927.78 mGy.cm COMPARISON: Radiograph 09/24/2024 Hips: Degenerative air in the SI joints. Normal position LEFT femoral head within the acetabulum. No destructive bone lesion. Mild sigmoid diverticular disease. LEFT knee: Moderate tricompartment joint space narrowing with marginal osteophytes. Narrowing of the intercondylar notch by osteophytes. No soft tissue mass. Small Bucio's cyst. LEFT ankle: unremarkable. CT/CT knee LT [facility] [id number] IMPRESSION: CT imaging provided for [facility] robotic total knee replacement.
== END 2025-03-29 07:46 | disposition home or self-care (01) ==
LOC: RAD 07:46
PROVIDERS: PCP Nurse Practitioner Family; Visit Provider Student in an Organized Health Care Education/Training Program
DX: M17.12 Unilateral primary osteoarthritis, left knee (principal); R93.89 Abnormal findings on diagnostic imaging of other specified body structures; K57.30 Diverticulosis of large intestine without perforation or abscess without bleeding; M25.762 Osteophyte, left knee; M71.22 Synovial cyst of popliteal space [Baker], left knee; R93.6 Abnormal findings on diagnostic imaging of limbs
CPT/HCPCS: 73700

== ENCOUNTER 2025-04-07 12:05 | Observation (INO) | payer OTHER, SELFPAY ==
[2025-04-07] VITALS (14 sets, daily range): BP systolic 115–150; BP diastolic 63–86; PULSE 62–89; RESP 13–18; TEMP 36.4–36.7; O2SAT 92–98; BMI 31.7
[2025-04-07] MEDS: scopolamine 1 mg PATCH 1 PATCH TRANSDERMA (06:51)
[2025-04-07] MEDS: ketorolac 30 mg/mL INJ IVP (06:52)
[2025-04-07] MEDS: sodium chloride 0.9% 1,000 ML 30 ML IV (06:52)
[2025-04-07] MEDS: acetaminophen 1,000 MG/100 ML PIGGYBACK 400 MG IV ×3 (06:52→20:09)
--- NOTE | 2025-04-07 07:13 | W.PM.OPSFHP ---
Same Day Surgery H&P Indication for Procedure/HPI DATE OF PROCEDURE: April 07, 2025 CHIEF COMPLAINT/INDICATIONFOR SURGICAL PROCEDURE: Left knee DJD PREOP DIAGNOSIS: Left knee DJD PLANNED PROCEDURE: Operation Date: 04/07/25 08:00 Proposed Procedures p LEFT Miquel Robot Total Knee Arthroplasty(Left) - Lester Mcfarlane DO Medications/Allergies* Home Medications ?Medication ?Instructions ?Recorded ?Confirmed ?Type Lactobacillus comb 1 cap PO PRN PRN Digestion 02/14/22 04/05/25 History no.3-[id number] 300 million cell-250 mg capsule (Probiotic and Acidophilus) aspirin 325 mg tablet 325 mg PO DAILY 06/25/23 04/05/25 History naproxen 250 mg tablet 500 mg PO BID PRN Pain 01/27/25 04/05/25 History dexlansoprazole 60 mg 60 mg PO DAILY 04/05/25 04/05/25 History capsule,biphase delayed release venlafaxine 150 mg 150 mg PO DAILY 04/05/25 04/07/25 History capsule,extended release 24 hr Allergies/Adverse Reactions Allergy/AdvReac Type Severity Reaction Status Date / Time Penicillins Allergy Hives, Verified 04/07/25 06:36 Itching Sulfa (Sulfonamide Allergy Hives, Verified 04/07/25 06:36 Antibiotics) Itching Current Medications: Generic Name Dose Route Start Last Admin Trade Name Freq PRN Reason Stop Dose Admin Sodium Chloride 1,000 mls @ 30 mls/hr 04/07/25 06:45 04/07/25 06:52 Sodium Chloride 0.9% IV 04/08/25 06:44 30 mls/hr .Q24H KAROLYN Administration Pertinent History/Comorbid Conditions* Medical History (Updated 09/24/24 @ 09:56 by Lester Mcfarlane DO) Osteopenia No pertinent past medical history neghx: dm,thyroid,dvt/pe PCP: Jess Alarcon MVP (mitral valve prolapse) Atypical glandular cells of undetermined significance (TERA) on cervical Pap smear (~2018) resolved Hiatal hernia Surgical History (Updated 05/30/20 @ 09:36 by MARC MaradiagaN, KYAW) H/O dilation and curettage History of appendectomy H/O tubal ligation H/O knee surgery (~2016) Family History (Updated 06/05/22 @ 08:44 by Nancy Figueroa Ovarian cancer Family/Other Maternal Cousin Diabetes Mother Heart disease Mother Father Hyperlipidemia Mother Father Breast cancer Family/Other Paternal Aunt--dx age 40's Grandmother Paternal-- dx age 50's Hypertension Mother Father Stroke Grandmother Paternal Denies family history of Uterine cancer Thyroid disease Social History Smoking and tobacco/nicotine status: never used tobacco/nicotine Pertinent Exam Findings alert, oriented x 3, operative site marked and procedure specific exam findings Please refer to detailed orthopedic examination on listed below: LEFT Knee Exam: ROM 0 to greater than 115 degrees Patellar crepitus with ROM Medial joint line tenderness to palpation Lateral joint line tenderness to palpation Mild joint effusion Negative Taylor's, but pain noted Negative Jus's 5-10 degrees of Varus malalignment, correctable on examStable Varus and Valgus stress Gross motor sensory intact Recommendations Risks and benefits of procedure reviewed and Patient/family agree to proceed Surgery/Procedure today Other Plans: Plan to proceed to the OR today for left total knee arthroplasty?Miquel robotic assisted she is cleared the preoperative clearance process denies any urinary symptoms today she has been cleared with Dr. Gillis medically optimized. She is over 90 days from her previous injection at this point time she is medically optimized and ready proceed with surgical invention. All questions been answered at this time I did check with her allergies she states she has had Keflex in the past and Rocephin without any issues or complications. Patient understands agrees to current plan. All questions answered. Will proceed to the OR today. Coding Level of Care Code Acute Code for Yuko [place]
[2025-04-07 07:14] LABS: Basophils # 0.1 10^3/uL (0.0-0.1); Basophils % 1.5 %; Eosinophils # 0.2 10^3/uL (0.0-0.8); Eosinophils % 3.3 %; Hematocrit 39.5 % (36-47); Lymphocytes # 1.7 10^3/uL (0.8-4.8); Lymphocytes % 25.5 %; Mean Corpuscular HGB Conc 32.4 g/dL (30-55); Mean Corpuscular Hemoglobin 30.1 pg (27-33); Mean Corpuscular Volume 92.9 fl (85-98); Mean Platelet Volume 9.2 fL (7.4-10.4); Monocytes # 0.5 10^3/uL (0.2-0.9); Monocytes % 7.2 %; Neutrophils # 4.13 10^3/uL (1.8-7.7); Neutrophils % 62.2 %; Nucleated Red Blood Cells % 0 %; Platelet Count 321 10^3/cmm (157-399); Red Blood Count 4.25 10^6/uL (3.85-5.65); Red Cell Distribution Width 12.1 % (12.1-15.1); White Blood Count 6.64 10^3/uL (3.29-11.43)
--- NOTE | 2025-04-07 07:15 | ANES.PREANE2 ---
Pre-Anesthetic Assessment Height/Weight: Height 1.63 m Weight 83.915 kg Temp Pulse Resp BP Pulse Ox O2 Del Method 97.8 F 79 17 147/86 97 Room Air 04/07/25 06:41 04/07/25 06:41 04/07/25 06:41 04/07/25 06:41 04/07/25 06:41 04/07/25 06:42 Preop Diagnosis: Left knee DJD Operation Date: 04/07/25 08:00 Proposed Procedures p LEFT Miquel Robot Total Knee Arthroplasty(Left) - Lester Mcfarlane DO Familial anesthetic complications: none Was Beta Sabrina taken within 24 hours: N/A Was Clonidine taken within 24 hours: N/A Last intake: Intake Last Liquid Date 04/06/25 Last Liquid Time 20:00 Last Solid Date 04/06/25 Last Solid Time 20:00 Social No alcohol and No tobacco Exam alert, oriented x 3, clear to auscultation bilaterally and regular rate & rhythm Airway Submandibular: within normal limits Cervical ROM: within normal limits Mallampati: Class II Dentition: full History/ROS No significant history except as noted and No significant complaints Pulmonary None reported CV/HEM Hypertension None reported Hepatic None reported GI Gastroesophageal Reflux Disease Metabolic None reported Musc/skel None reported Neuropsych None reported Anesthetic Plan ASA status: 2 Anesthesia: Eval. for regional block (Spinal) Risk of > 500 ml blood loss (7ml/kg in children): No Medications/Allergies Home Medications ?Medication ?Instructions ?Recorded ?Confirmed ?Last Taken ?Type Lactobacillus comb 1 cap PO PRN PRN Digestion 02/14/22 04/05/25 02/14/22 History no.6-HVD-[id number] 300 million cell-250 mg capsule (Probiotic and Acidophilus) nitroglycerin 0.4 mg sublingual 0.4 mg sublingual Q5M PRN chest 02/18/22 04/05/25 Unknown Rx tablet pain #30 tabs aspirin 325 mg tablet 325 mg PO DAILY 06/25/23 04/05/25 04/02/25 History Left Knee Pricing Supervisor Brace #1 ea 09/24/24 03/24/25 Unknown Rx albuterol sulfate 2.5 mg/3 mL 2.5 mg (3 mL) inhalation QID PRN 12/03/24 04/05/25 Unknown Rx (0.083 %) solution for nebulization shortness of breath or wheezing #180 mL naproxen 250 mg tablet 500 mg PO BID PRN Pain 01/27/25 04/05/25 04/02/25 History losartan 100 1 tab PO DAILY #90 tabs 02/23/25 04/05/25 04/05/25 Rx mg-hydrochlorothiazide 25 mg tablet amlodipine 10 mg tablet 10 mg PO DAILY #90 tabs 02/28/25 04/07/25 04/07/25 Rx dexlansoprazole 60 mg 60 mg PO DAILY 04/05/25 04/05/25 04/05/25 History capsule,biphase delayed release venlafaxine 150 mg 150 mg PO DAILY 04/05/25 04/07/25 04/07/25 History capsule,extended release 24 hr Allergies Allergy/AdvReac Type Severity Reaction Status Date / Time Penicillins Allergy Hives, Verified 04/07/25 06:36 Itching Sulfa (Sulfonamide Allergy Hives, Verified 04/07/25 06:36 Antibiotics) Itching Current Medications Generic Name Dose Route Start Last Admin Trade Name Freq PRN Reason Stop Dose Admin Sodium Chloride 1,000 mls @ 30 mls/hr 04/07/25 06:45 04/07/25 06:52 Sodium Chloride 0.9% IV 04/08/25 06:44 30 mls/hr .Q24H KAROLYN Administration PFSH Anesthesia Medical History Osteopenia No pertinent past medical history neghx: dm,thyroid,dvt/pe PCP: Jess Alarcon MVP (mitral valve prolapse) Atypical glandular cells of undetermined significance (TERA) on cervical Pap smear (~2018) resolved Hiatal hernia Surgical History H/O dilation and curettage History of appendectomy H/O tubal ligation H/O knee surgery (~2017) Family History Mother Heart disease Hypertension Hyperlipidemia Diabetes Father Heart disease Hypertension Hyperlipidemia Family/Other Ovarian cancer Maternal Cousin Breast cancer Paternal Aunt--dx age 40's Grandmother Breast cancer Paternal-- dx age 50's Stroke Paternal Denies family history of Uterine cancer Thyroid disease Social History Smoking and tobacco/nicotine status: never used tobacco/nicotine Data Anesthesia 04/07/25 06:50 04/07/25 06:50 Short CBC 04/07/25 Range/Units 06:50 WBC 6.64 (3.29-11.43) 10^3/uL Hgb 12.80 (11.27-16.99) g/dL Hct 39.5 (36-47) % MCV 92.9 (85-98) fl Plt Count 321 (157-399) 10^3/cmm Neut % (Auto) 62.2 % Neut # (Auto) 4.13 (1.8-7.7) 10^3/uL Cardiac Studies: Echocardiogram 03/19/24
[2025-04-07 07:32] LABS: Anion Gap 17.8 (5-19); Blood Urea Nitrogen 21 mg/dL (8-23); Calcium 9.4 mg/dL (8.5-10.5); Carbon Dioxide 24 mmol/L (22-29); Chloride 102 mmol/L (98-107); Creatinine Clr Calc Pharmacy 74.4537; Glomerular Filtration Rate 72.2 mL/min (90-130); Glucose 101 mg/dL (65-115); Osmolality Calculated 293 mOsm/kg (285-295); Potassium 3.8 mmol/L (3.5-5.1); Sodium 140 mmol/L (136-145)
[2025-04-07] MEDS: ceFAZolin 2,000 MG in sodium chloride 0.9% (plus) 50 ML 100 MG IV ×2 (08:33→17:26)
[2025-04-07] MEDS: tranexamic acid 1,000 mg/10mL SDV 1000 MG IV (09:12)
[2025-04-07] MEDS: EPINEPHrine 1 mg/mL INJ XX (09:35)
[2025-04-07] MEDS: ketorolac 30 mg/mL INJ XX (09:35)
[2025-04-07] MEDS: ROPivacaine 0.2% Premix 100 mL 200 MG INTRA-ARTI (09:35)
[2025-04-07] MEDS: tranexamic acid 1,000 mg/10mL SDV 1000 MG XX (09:35)
--- NOTE | 2025-04-07 10:57 | XR_ITS ---
WS: [id number] Left knee, AP and lateral views, 04/07/2025 Clinical Data: post L TKA Comparison: Both knees, left knee, 09/24/2024 Findings: The knee arthroplasty components are in good position. No periprosthetic fractures are seen. There is air in the joint space from the recent surgery. XR/XR knee LT 3V* [id number] Impression: Left knee arthroplasty.
--- NOTE | 2025-04-07 10:58 | W.PM.BPON ---
Date of Procedure: 04/07/2025 Surgeon: Lester Mcfarlane DO Photocopying Equipment Repairer(s): Charanjit Mcfarlane PA-C Procedure(s) performed: Left total knee arthroplasty?Miquel robotic assisted Findings of the procedure(s): Patient underwent procedure as planned without issues or complications. Estimated blood loss: 25 mL Specimen(s) removed: Tibia femur patellar bone cuts removed Post-operative diagnosis: Left knee DJD
--- NOTE | 2025-04-07 11:00 | PM.OP ---
Operative Report Date of procedure: April 07, 2025 Surgeon: Lester Mcfarlane DO Vp Product Marketing: Charanjit Mcfarlane PA-C: PA was necessary for assistance in this case with leg positioning retraction and protection of neurovascular structures as well as assistance in implantation wound closure and dressing application. Procedure: Preoperative diagnosis: Left knee degenerative joint disease Post-op diagnosis: Same Procedure done: Left total knee arthroplasty, cemented?robotic assisted Miquel Implants: Tata triathlon size 3 femur CR cemented?left Tata triathlon size? 3 tibia universal baseplate cemented [place] triathlon symmetric patella size 31 mm Tata triathlon polyethylene 10mm Surgeon: Lester Mcfarlane DO Estimated blood?loss: 25 mL Tourniquet 61min IV fluids: 1800 mL Urine output: 200 mL Complications: None Condition: stable Disposition: floor Brief History: Patient is a 64-year-old female with with chronic?left knee degenerative joint disease.? Patient has been worked up in the outpatient setting in the orthopedic office at this point time through shared decision making given? [id number] arthritis as well as failed conservative treatment, and pt would?like to proceed with a?left total knee arthroplasty.? Through shared decision making elected to proceed with surgical intervention for?left total knee arthroplasty.? We talked about continued conservative treatment and surgical intervention as far as the risk benefits complications alternatives surgical and nonsurgical treatment options.? At this point time understanding patient risks with surgery pt agrees to proceed with surgical intervention.? Once again? risk with surgery include but are not?limited to make it better make it worse blood clot, heart attack, stroke, on the table, infection, injury to nerves or vessels, persistent pain, arthrofibrosis, implant failure.? Understanding these risks patient agrees to proceed with surgical intervention consent was obtained in the office.? All questions answered. Procedure: Patient was seen and evaluated in the preoperative holding area.? Consent was reviewed and signed with patient with plan for?left total knee arthroplasty.? All questions answered.? Correct extremity marked.? Patient seen and evaluated by the anesthesia department and once cleared for surgery was taken back to the operative suite.? Patient was placed into a supine position on the OR table.? All bony prominences were well-padded.? Patient was appropriately secured to the bed.? Patient underwent anesthesia per the anesthesia department.? Patient received spinal anesthesia and? Pacheco catheter was placed.? A nonsterile tourniquet was applied to the?left thigh.? At this point in time a final timeout performed.? Patient received appropriate preoperative antibiotics and TXA. Next the?left?lower extremity was then prepped and draped in standard orthopedic fashion. Esmarch tourniquet was used exsanguinate the?left?lower extremity.? Tourniquet was insufflated to 250 mmHg. A standard anterior incision was made over midline of the knee.? Sharp scalpel excision through skin and subcutaneous tissue full-thickness skin flaps were made.? Fascia was elevated off of the extensor retinaculum was stable with medial parapatellar arthrotomy was then made.? The performed standard sequential releases..? Immediately on entry into the joint patient was found to have severe eburnated bone and tricompartmental arthritic changes noted.? With significant osteophyte formation.? Next the the patella was then stuffed and the knee was then flexed.?? Shania was placed superiorly around the anterior aspect of the femur this was freed of synovium and I subsequently then placed by 2 femur pins to establish my femur arrays for the Miquel robot.? These were then placed bicortically and? femur array was then appropriately secured with appropriate visualization.? Next attention was turned towards the tibial rays.? These were then drilled sequentially bicortically in parallel fashion and intraincisional.? I then placed my guide as well as my tibial array on in place.? This was appropriately secured and had excellent visualization with the Miquel robot.? Next the tibial checkpoint as well as femur checkpoint were then placed.? At this point time I then subsequently established my head center as well as my medial?lateral malleoli as well as my checkpoints.? Next utilizing standard Miquel technology I then mapped out the appropriate points and confirmation points around the femur as well as the tibia in standard fashion.? Once this was then done I then removed all osteophytes in preparation for dynamic testing.? All osteophytes were removed as well as I removed the ACL and the PCL was excised due to its significant tearing and degeneration noted.? At this point time the knee was brought into full extension and we performed our standard evaluation of our gap balancing stressing his?ligaments and extension as well as flexion appropriate adjustments were made to have appropriate gap balancing in both flexion and extension.? This plan for final cuts, to correct patient's deformity to acceptable ligamentous tolerances.? We get a preoperative plan evaluating our implants which was a size 3 femur and a size 3 tibia.? Next we brought in the Miquel robot and sequentially made our femur cuts.? All excess bony cuts were then removed.? Finally we made our tibial cut.? Once this was done a standard PCL retractor was then placed into this position I excised the medial and?lateral meniscus.? The tibial cut was then subsequently removed all excess bony debris was removed.? I then utilized a?lamina hand deicer element winder and remove the posterior osteophytes.? At this point time sized the tibia and confirmed this was a size 3.? I utilized our blunt probe to establish rotation of tibial implant.? Once this was done I then placed my tibia size 3 trial in appropriate position and then subsequently placed tibial pins to hold this into place placed trialed up to a size 10 mm poly as well as a size 3 femur which was appropriately impacted in place knee was then subsequently brought into extension. Trials were then assessed,? this was stable with varus valgus stress in extension as well as had symmetrical translation when brought into flexion demonstrating symmetrical gaps. I had excellent balance gaps in flexion and extension with varus and valgus stresses.? At this point I was satisfied with these implants these were then verified and opened on the back table size 3 tibia, size 3 femur,? size 10mm polythickness.? We did confirm appropriate gap balancing and stresses as well as alignment utilizing? Miquel and were satisfied with this plan.? ?At this point time with my trials in place I then towel clip the patella everted this made appropriate measurements subsequently utilizing freehand technique performed by patellar resurfacing this was confirmed to be appropriate resection leaving roughly 14 mm of bone after resection and subsequently sized to be a 31 mm symmetric.? My drill peg guides were then clamped and appropriate position and appropriate position in the patella for appropriate tracking and parallel with the joint.? Pegs were drilled trial implant was placed and the knee was then subsequently ranged and found to have excellent patellar tracking.? Femur pegs were then drilled.? At this point time all of our trial implants were removed.? All checkpoints as well as guidepins and arrays were removed and appropriate counts made.? Satisfied with our tibial placement rotation I then utilized the keel punch and prepped the tibia.?The wound bed? was thoroughly irrigated and dried and prepped for cementation.? Cement was mixed on the back table.? Once cement was ready this was then covered onto the tibia and the tibial baseplate was then impacted and all excess cement was removed.? Next the polyethylene was then impacted into place on the tibial baseplate.? Next cement was placed onto the femur as well as under the femur implants and impacted in to place and all excess cement was extruded and removed.? Knee was taken into full extension? to clear all excess cement was removed.? Warm saline was placed over the joint.? I then towel clip patella and dried for cementation. cemented the patella into place.? This was all clamped and the cement was allowed to cure.? Thorough irrigation performed with pulse?lavage.? I then placed my periarticular injection while the cement was curing.? Once cured the knee was taken through range of motion and had excellent stability and gaps were balanced in flexion and extension.? Tourniquet was then deflated. hemostasis satisfactory with electrocautery.? Next I then subsequently closed the capsule with Ethibond suture as well as a running strata fix suture.? Knee was then taken through range of motion 20 times.? Next the skin was then closed in?layered fashion of running stratifix sutures of deep and subcutenous tissue and skin.? ?closed in flexion and Prineo glue was then placed over the incision this allowed to cure.? Incision was covered with Silverlon, with ABDs soft roll and Bakari wrap.? Patient was then awakened from anesthesia and taken to PACU in stable condition. Disposition: Patient taken to PACU in stable condition will be admitted to the floor for pain control PT/OT weight-bear as tolerated?left?lower extremity dressing changes as needed, DVT prophylaxis. Pain control. Patient will receive appropriate postoperative antibiotics. patient will be seen today by the internal medicine team for medical management.? Patient will follow up with the office in 2 weeks.? Patient understands agrees with current plan.? All questions answered.
--- NOTE | 2025-04-07 11:10 | PM.PACU ---
PACU note Narrative: Patient is a 64-year-old female that just underwent a left total knee arthroplasty. Pt transferred to PACU in stable condition. Dressing is dry. pt is awake and alert. pt can wiggle toes and plantarflex and dorsiflex foot. pt able to perform straight leg raise, Femoral nerve intact. Distal pulses are palpable toes are warm and well-perfused. Cap refill is normal and under 2 seconds. Sensation to foot is intact. Pain is controlled. Exam: awake Disposition: admitted
--- NOTE | 2025-04-07 11:38 | ANES.PROC ---
Anesthesia Procedures Procedure/Date: 04/07/25 Nerve Block ^: Nerve Block 1: Main Anesthesia: general anesthesia Time Out Performed: Yes Consent: requested by attending/covering physician and from patient Nerve block location: adductor canal Anesthesia monitors applied: pulse oximetry, EKG, BP cuff and oxygen Nerve block position: supine Anesthetic Used: ropivicaine 0.5% Amount of anesthesia used (mL): 15 Ultrasound used to: recognize landmarks Nerve Stimulator Used?: No Interscalene/Femoral BLK: other needle (pjunk 4inch) Injection: neg aspiration of heme Patient Tolerated Procedure: well Complications: none
--- NOTE | 2025-04-07 11:57 | PC.NURSE ---
Patient taken to OB 11 via bed. VS taken T - 97.7, HR 76, RR 18, BP 142/73, 02 sat 95% on room air. ROLY Damico at bedside.
--- NOTE | 2025-04-07 12:15 | ANE.PACU2 ---
Inpatient post-anesthesia follow up: Airway intact: Yes Vital signs: Temperature 97.6 F Pulse Rate 79 Respiratory Rate 16 Blood Pressure 150/70 Pulse Oximetry 93 Oxygen Delivery Me thod Room Air Oxygen Flow Rate Fraction of Inspir ed Oxygen Hydration adequate: Yes Nausea and vomiting: No Pain level: 2 Mental status: Baseline
--- NOTE | 2025-04-07 13:42 | P.CONIM_ITS ---
Providers/Reason For Consult 2 Consulting Physician/Specialty*: Hospitalist Reason for Consult*: Medical Management Attending Physician: Lester Mcfarlane DO Primary Care Provider: BREANNE Phan History of Present Illness History of Present Illness Jess Christensen is a 64 year old female with a history of hypertension, mitral valve prolapse, and GERD (on acid dinesh) is being seen following a left knee replacement. The procedure was reportedly uneventful with minimal blood loss. The patient denies fever, chills, sore throat, sneezing, coughing, nausea, vomiting, abdominal pain, or new swelling in the leg. The patient reports occasional swelling in the left leg with amlidpine, which has since improved. No other new complaints were reported. The patient denies a history of heart attack, stroke, or sleep apnea. Review of Systems 2 Const: Denies: fever(s), chills, body aches or malaise ENMT: Denies: throat pain Card: Denies: chest pain, edema, pre-syncope or dyspnea on exertion Resp: Denies: dyspnea or productive cough GI: Denies: abdominal pain, nausea, vomiting or diarrhea Medications/Allergies Home Medications ?Medication ?Instructions ?Recorded ?Confirmed ?Last Taken ?Type Lactobacillus comb 1 cap PO PRN PRN Digestion 0 02/14/22 04/05/25 02/14/22 History no.5-DUV-kbftosrguf 300 million cell-250 mg capsule (Probiotic and Acidophilus) nitroglycerin 0.4 mg sublingual 0.4 mg sublingual Q5M PRN chest 02/18/22 04/05/25 Unknown Rx tablet pain #30 tabs aspirin 325 mg tablet 325 mg PO DAILY 06/25/2304/02/25 History Left 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 Brace #1 ea 09/24/24 03/24/25 Unkn own Rx albuterol sulfate 2.5 mg/3 mL 2.5 mg (3 mL) inhalation QID PRN 12/03/24 04/05/25 Unknown Rx (0.083 %) solution for nebulization shortness of breat h or wheezing #180 mL naproxen 250 mg tablet 500 mg PO BID PRN Pain 01/2704/05/25 04/02/25 History losartan 100 1 tab PO DAILY #90 tabs 04/0 08/1104/05/25 04/05/25 Rx mg-hydrochlorothiazide 25 mg tablet amlodipine 10 mg tablet 10 mg PO DAILY #90 tabs 02/1504/07/25 04/07/25 Rx dexlansoprazole 60 mg 60 mg PO DAILY 04/05/25 052 04/05/25 History capsule,biphase delayed release venlafaxine 150 mg 150 mg PO DAILY 04/05/2504/07/25 History capsule,extended release 24 hr Allergies Allergy/AdvReac Type Severity Reaction Status Date / Time Penicillins Allergy Hives, Verified 04/07/25 06:36 Itching Sulfa (Sulfonamide Allergy Hives, Verified 04/07/25 06:36 Antibiotics) Itching PFSH Acute 2 PFSH: Medical History Osteopenia No pertinent past medical history neghx: dm,thyroid,dvt/pe PCP: Jess Alarcon MVP (mitral valve prolapse) Atypical glandular cells of undetermined significance (TERA) on cervical Pap smear (~2018) resolved Hiatal hernia Surgical History H/O dilation and curettage History of appendectomy H/O tubal ligation H/O knee surgery (~2016) Family History Mother Heart disease Hypertension Hyperlipidemia Diabetes Father Heart disease Hypertension Hyperlipidemia Family/Other Ovarian cancer Maternal Cousin Breast cancer Paternal Aunt--dx age 40's Grandmother Breast cancer Paternal-- dx age 50's Stroke Paternal Denies family history of Uterine cancer Thyroid disease Social History Smoking and tobacco/nicotine status: never used tobacco/nicotine Vitals/I&O/Wt Last Vital Signs Temp 97.6 F 04/07/25 12:50 Pulse 79 04/07/25 12:50 Resp 16 04/07/25 12:50 BP 150/70 04/07/25 12:50 Pulse Ox 93 04/07/25 12:50 O2 Del Method Room Air 04/07/25 12:50 04/06/25 04/07/25 04/07/25 22:59 06:59 14:59 Intake Total 2310 / 2310 Output Total 225 / 225 Balance 2084 / 208 Weight last 48 hrs Weight 83.915 kg Weight 83.915 kg Physical Exam 2 Const: COMMON NORMALS: patient oriented x3 and alert GENERAL APPEARANCE: c ooperative ORIENTATION/CONSCIOUSNESS: Yes awake HENMT: COMMON NORMALS: oropharynx normal Neck/C-Spine: COMMON NORMALS: no JVD Resp: COMMON NORMALS: normal respiratory effort and clear to auscultation bilaterally AUSCULTATION: clear to auscultation bilaterally Cardio: COMMON NORMALS: no JVD, regular rhythm, S1 normal heart sound present, S2 normal heart sound present and No murmurs present (Cardio) RHYTHM: regular rhythm HEART SOUNDS: S1 normal heart sound present and S2 normal heart sound present GI: COMMON NORMALS: Normal to inspection, nondistended, normoactive bowel sounds present, Soft to palpation and non-tender PALPATION: Yes Soft to palpation Extremity: COMMON NORMALS: no joint enlargement and no pedal edema OTHER: RLE post op dressing and elastic bandage. No swelling. Neuro: COMMON NORMALS: patient oriented x3 and moves all extremities S ENSORIUM/ORIENTATION: Yes alert Skin: COMMON NORMALS: no rashes or lesions noted GENERAL SKIN EXAM: no rashes or lesions noted Urinary Catheter Management: Pacheco: Cath Placed During This Visit: yes Urinary Catheter Date of Insertion: 04/07/25 Urinary Catheter Time of Insertion: 08:45 Data 04/07/25 06:50 04/07/25 06:50 A&P Assessment and plan (1) S/P knee replacement: Recovering from a left knee replacement. The procedure was uneventful with minimal blood loss. The patient reported a transient increase in swelling in the left leg, which has since improved. The ortho provider will recheck the patient's blood count tomorrow to monitor for anemia. Physical therapy is scheduled to see the patient. If recovery continues as expected, discharge home is anticipated tomorrow. Reviewed vitals, CBC, chemistry, knee x-ray, surgery note. Discussed with orthopedic surgeon. - Recheck blood count tomorrow to monitor for anemia. - Physical therapy evaluation and exercises. -VTE prophylaxis plan bartering surgery with Eliquis for tomorrow -Remove Pacheco with mobilization - Incentive spirometer - Acetaminophen as needed for pain. IV Dilaudid as needed for severe breakthrough pain. - Anticipate discharge home if recovery is stable. Plan Hypertension : History of hypertension. Reviewed blood pressure, 115/70. No acute issues reported during this visit. Resume amlodipine. Mitral valve prolapse : History of mitral valve prolapse. No acute issues reported during this visit. GERD : History of GERD, managed with acid dinesh medication. No acute symptoms reported. Resume PPI. Takes aspirin prophylactically after having a COVID infection. Denies history of PR, stroke, discussed with her risk of bleeding as she will be on anticoagulation prophylaxis after VT surgery. PDMP PDMP Reviewed: Not Reviewed Consult Attestations 2 Medical Necessity Statement: Hospitalization for observation after left knee replacement surgery. and High MDM includes amount and/or complexity of data reviewed/ordered [ previous or external records, resulted lab(s)/test(s), ordered lab(s)/test(s) and other healthcare professional discussion] and described risk of complication, morbidity or mortality of management as documented Diagnoses S/P knee replacement Z96.659
[2025-04-07] MEDS: tranexamic acid 1,000 MG/100 ML PREMIX 600 MG IV (13:48)
[2025-04-07] MEDS: chlorhexidine gluconate 0.12% Btl 473 mL 30 ML MUCOUS MEM ×3 (13:49→20:08)
[2025-04-07] MEDS: lactated ringers 1,000 ML 100 ML IV (13:49)
[2025-04-07] MEDS: ketorolac 30 mg/mL INJ 15 MG IVP (14:07)
[2025-04-07] MEDS: oxyCODONE 5 mg IR Tab/Cap PO (14:57)
[2025-04-07] MEDS: mupirocin oint 22 gm 1 APPLIC NASAL (17:26)
[2025-04-07] MEDS: iron polysaccharide complex 150 mg Capsule PO (17:26)
[2025-04-07] MEDS: calcium carb-vit d 600mg/400unit 1 Tablet 1 EACH PO (17:26)
[2025-04-07] MEDS: sennosides-docusate Tablet 2 TAB PO (17:26)
[2025-04-08] MEDS: ceFAZolin 2,000 MG in sodium chloride 0.9% (plus) 50 ML 100 MG IV ×2 (00:01→08:21)
[2025-04-08 00:06] VITALS: BP 137/81; PULSE 78; RESP 16; TEMP 36.7; O2SAT 95
[2025-04-08] MEDS: lactated ringers 1,000 ML 100 ML IV (00:41)
[2025-04-08] MEDS: ketorolac 30 mg/mL INJ 15 MG IVP (00:41)
[2025-04-08 03:43] VITALS: RESP 16; O2SAT 96
[2025-04-08] MEDS: oxyCODONE 5 mg IR Tab/Cap PO (03:43)
[2025-04-08 03:45] VITALS: BP 146/79; PULSE 80; RESP 16; O2SAT 95
[2025-04-08] MEDS: acetaminophen 1,000 MG/100 ML PIGGYBACK 400 MG IV (04:16)
[2025-04-08 05:22] LABS: Basophils # 0.1 10^3/uL (0.0-0.1); Basophils % 0.7 %; Eosinophils # 0.1 10^3/uL (0.0-0.8); Eosinophils % 0.9 %; Hematocrit 33.3 % (36-47); Lymphocytes # 0.8 10^3/uL (0.8-4.8); Lymphocytes % 8.9 %; Mean Corpuscular HGB Conc 31.8 g/dL (30-55); Mean Corpuscular Hemoglobin 30.1 pg (27-33); Mean Corpuscular Volume 94.6 fl (85-98); Mean Platelet Volume 9.2 fL (7.4-10.4); Monocytes # 0.7 10^3/uL (0.2-0.9); Monocytes % 7.6 %; Neutrophils # 7.06 10^3/uL (1.8-7.7); Neutrophils % 81.7 %; Nucleated Red Blood Cells % 0 %; Platelet Count 244 10^3/cmm (157-399); Red Blood Count 3.52 10^6/uL (3.85-5.65); Red Cell Distribution Width 12.1 % (12.1-15.1); White Blood Count 8.65 10^3/uL (3.29-11.43)
[2025-04-08 05:44] LABS: Blood Urea Nitrogen 16 mg/dL (8-23); Calcium 8.4 mg/dL (8.5-10.5); Carbon Dioxide 23 mmol/L (22-29); Chloride 106 mmol/L (98-107); Creatinine Clr Calc Pharmacy 99.2717; Glomerular Filtration Rate 100.6 mL/min (90-130); Glucose 119 mg/dL (65-115); Osmolality Calculated 286 mOsm/kg (285-295); Sodium 137 mmol/L (136-145)
[2025-04-08 06:21] VITALS: BMI 31.7
--- NOTE | 2025-04-08 06:58 | PC.NURSE ---
Ice was offered by RN throughout the night at every rounding hour patient declined each time.
--- NOTE | 2025-04-08 07:37 | P.PN_ITS ---
Subjective 2 Subjective: Having some pain in her knee postoperatively, but otherwise says she is doing well. Denies chest pain or pressure. No trouble breathing. No nausea or other complaints. She has been up with nursing staff and PT. Vitals/I&O/Wt Last Vital Signs Temp 98.0 F 04/08/25 00:06 Pulse 80 04/08/25 03:45 Resp 16 04/08/25 03:45 BP 146/79 04/08/25 03:45 Pulse Ox 95 04/08/25 03:45 O2 Del Method Room Air 04/08/25 03:45 04/07/25 04/08/25 04/08/25 22:59 06:59 14:59 Intake Total 510 / 3020 1850 / 4870 Output Total 1750 / 1975 650 / 2625 Balance -1240 / 1045 1200 / 2245 Weight last 48 hrs Weight 83.915 kg Weight 83.915 kg Weight 83.915 kg Physical Exam 2 Const: COMMON NORMALS: patient oriented x3 and alert GENERAL APPEARANCE: c ooperative ORIENTATION/CONSCIOUSNESS: Yes awake HENMT: COMMON NORMALS: oropharynx normal Neck/C-Spine: COMMON NORMALS: no JVD Resp: COMMON NORMALS: normal respiratory effort and clear to auscultation bilaterally AUSCULTATION: clear to auscultation bilaterally Cardio: COMMON NORMALS: no JVD, regular rhythm, S1 normal heart sound present, S2 normal heart sound present and No murmurs present (Cardio) RHYTHM: regular rhythm HEART SOUNDS: S1 normal heart sound present and S2 normal heart sound present GI: COMMON NORMALS: Normal to inspection, nondistended, normoactive bowel sounds present, Soft to palpation and non-tender PALPATION: Yes Soft to palpation Extremity: COMMON NORMALS: no joint enlargement and no pedal edema OTHER: LLE post op dressing and elastic bandage. No swelling. Neuro: COMMON NORMALS: patient oriented x3 and moves all extremities S ENSORIUM/ORIENTATION: Yes alert Skin: COMMON NORMALS: no rashes or lesions noted GENERAL SKIN EXAM: no rashes or lesions noted Urinary Catheter Management: Pacheco: Cath Placed During This Visit: yes, but has since been removed by the nurse Reason for Continuing Indwelling Catheter: Decision to DC Catheter Urinary Catheter Date of Insertion: 04/07/25 Urinary Catheter Time of Insertion: 08:45 Date Urinary Catheter Removed: 04/08/25 Time Urinary Catheter Discontinued: 00:00 Data 04/08/25 05:14 04/08/25 05:14 A&P Assessment and plan (1) S/P knee replacement: Recovering from a left knee replacement. She is doing well. Mobilized with nursing and PT. Some pain is present in the knee. Discussed with her that her hemoglobin decreased down to 10.6. Follow-up with prime provider for reassessment of anemia. Would hold aspirin while on Eliquis. - Pacheco discontinued - Incentive spirometer - Acetaminophen as needed for pain. IV Dilaudid as needed for severe breakthrough pain. - May discharge home from my perspective, pending orthopedic reassessment Plan Hypertension : History of hypertension. Reviewed blood pressure. No acute issues reported during this visit. Resume amlodipine. Can resume home medications with discharge. Reviewed chemistry. Mitral valve prolapse : History of mitral valve prolapse. No acute issues reported during this visit. GERD : History of GERD, managed with acid dinesh medication. No acute symptoms reported. Resume PPI. Takes aspirin prophylactically after having a COVID infection. Denies history of MS, stroke, discussed with her risk of bleeding as she will be on anticoagulation prophylaxis after VT surgery. Would hold aspirin while on Eliquis. PDMP PDMP Reviewed: Not Reviewed Attestations 2 Medical Necessity Statement*: Anticipated return home. Diagnoses S/P knee replacement Z96.659
[2025-04-08] MEDS: chlorhexidine gluconate 0.12% Btl 473 mL 30 ML MUCOUS MEM (08:24)
[2025-04-08] MEDS: mupirocin oint 22 gm 1 APPLIC NASAL (08:24)
[2025-04-08] MEDS: apixaban 5 mg Tablet 2.5 MG PO (08:26)
[2025-04-08] MEDS: iron polysaccharide complex 150 mg Capsule PO (08:26)
[2025-04-08] MEDS: TRAMadol 50 mg Tablet PO (08:27)
[2025-04-08] MEDS: multivitamin therapeutic Tablet 1 TAB PO (08:27)
[2025-04-08] MEDS: sennosides-docusate Tablet 2 TAB PO (08:27)
[2025-04-08] MEDS: pantoprazole DR 40 mg Tablet PO (08:27)
[2025-04-08] MEDS: calcium carb-vit d 600mg/400unit 1 Tablet 1 EACH PO (08:27)
[2025-04-08] MEDS: venlafaxine ER (24HR) 150 mg Capsule PO (08:30)
[2025-04-08] MEDS: amlodipine 10 mg Tablet PO (08:31)
--- NOTE | 2025-04-08 09:58 | P.DS_ITS ---
Discharge Providers Date of Admission: 04/07/25 12:05 Date of Discharge: April 08, 2025 Attending Provider at Admission: Lester Mcfarlane DO Attending Provider at Discharge: Lester Mcfarlane DO Consults: Dr. Mota?hospitalist Primary Care Provider: BREANNE Phan Diagnoses at Discharge Discharge Diagnosis (1) S/P knee replacement: Status: Acute Reason for Visit Reason for Visit: M25.562 Brief History: Status post left total knee arthroplasty?Miquel robotic assisted Hospital Course Hospital Course Patient presented to the preoperative holding area with plan for left total knee arthroplasty after patient has been worked up in the outpatient setting for failed conservative treatment of [left] knee degenerative joint disease. Once cleared by anesthesia for surgery patient subsequently was taken back to the operative suite underwent anesthesia per anesthesia department and then subsequently underwent a [left] total knee arthroplasty. Procedure was performed without any complications patient was taken to PACU in stable condition patient recovered well in PACU and then was admitted to the floor postoperatively internal medicine was consulted and on board for medical management and assistance with care. Patient received appropriate PT/OT, postoperative antibiotics, postoperative TXA, pain control, postoperative DVT prophylaxis. Elevation and ice. Patient encouraged for knee range of motion allowed weightbearing as tolerated to the operative lower extremity. Dressing was changed as needed, labs were monitored daily. Patient recovered well postoperatively and worked well and progressed well with therapy. It was determined on postoperative day [ 1] the patient was stable for discharge from an orthopedic standpoint and medicine. Patient was comfortable with discharge and plan was discharged home. Patient received appropriate discharge instructions as well as pain medication and DVT prophylaxis postoperatively. Given appropriate instructions for dressing management. Patient will follow-up with Dr. Mcfarlane/orthopedics in the office in 2 weeks. All questions answered. Understand if there is any issues questions or concerns and contact the office. Physical Exam Narrative: Left knee examination: Dressing on in place, clean dry and intact. No evidence of saturation. Patient has normal postoperative swelling and tenderness to palpation to the knee. Compartments are soft compressible,'s calf soft and nontender. Sensations intact to light touch distally. Distal pulses are palpable. Patient is able to wiggle toes as well as plantarflex and dorsiflex ankle. Urinary Catheter Management: Pacheco: Cath Placed During This Visit: yes, but has since been removed by the nurse Reason for Continuing Indwelling Catheter: Decision to DC Catheter Urinary Catheter Date of Insertion: 04/07/25 Urinary Catheter Time of Insertion: 08:45 Date Urinary Catheter Removed: 04/08/25 Time Urinary Catheter Discontinued: 00:00 Discharge Data Studies Completed and Pending Completed Studies During Hospitalization Category Date Time Status XR knee LT 3V* [id number] Routine Exams 04/07/25 10:57 Completed Pending at discharge Category Date Time Status Basic Metabolic Panel AM LABS Lab 04/09/25 04:00 Ordered Basic Metabolic Panel AM LABS Lab 04/10/25 04:00 Ordered Complete Blood Count w/Auto AM LABS Lab 04/09/25 04:00 Ordered Complete Blood Count w/Auto AM LABS Lab 04/10/25 04:00 Ordered Radiology Impressions Knee X-Ray 04/07/25 10:57 Impression: Left knee arthroplasty. Laboratory Results WBC 8.65 10^3/uL (3.29-11.43) 04/08/25 05:14 RBC 3.52 10^6/uL (3.85-5.65) L 04/08/25 05:14 Hgb 10.60 g/dL (11.27-16.99) L 04/08/25 05:14 Hct 33.3 % (36-47) L 04/08/25 05:14 MCV 94.6 fl (85-98) 04/08/25 05:14 MCH 30.1 pg (27-33) 04/08/25 05:14 MCHC 31.8 g/dL (30-55) 04/08/25 05:14 RDW 12.1 % (12.1-15.1) 04/08/25 05:14 Plt Count 244 10^3/cmm (157-399) 04/08/25 05:14 MPV 9.2 fL (7.4-10.4) 04/08/25 05:14 Neut % (Auto) 81.7 % 04/08/25 05:14 Lymph % (Auto) 8.9 % 04/08/25 05:14 [place] % (Auto) 7.6 % 04/08/25 05:14 Eos % (Auto) 0.9 % 04/08/25 05:14 Baso % (Auto) 0.7 % 04/08/25 05:14 Neut # (Auto) 7.06 10^3/uL (1.8-7.7) 04/08/25 05:14 Lymph # (Auto) 0.8 10^3/uL (0.8-4.8) 04/08/25 05:14 [place] # (Auto) 0.7 10^3/uL (0.2-0.9) 04/08/25 05:14 Eos # (Auto) 0.1 10^3/uL (0.0-0.8) 04/08/25 05:14 Baso # (Auto) 0.1 10^3/uL (0.0-0.1) 04/08/25 05:14 Nucleated RBC % (auto) 0 % 04/08/25 05:14 Nucleated RBCs # 0.0 /100WBC 04/08/25 05:14 Sodium 137 mmol/L (136-145) 04/08/25 05:14 Potassium 4.0 mmol/L (3.5-5.1) 04/08/25 05:14 Chloride 106 mmol/L (98-107) 04/08/25 05:14 Carbon Dioxide 23 mmol/L (22-29) 04/08/25 05:14 Anion Gap 12.0 (5-19) 04/08/25 05:14 BUN 16 mg/dL (8-23) 04/08/25 05:14 Creatinine 0.6 mg/dL (0.5-0.9) 04/08/25 05:14 GFR Calculation 100.6 mL/min (90-130) 04/08/25 05:14 Glucose 119 mg/dL (65-115) H 04/08/25 05:14 Calculated Osmolality 286 mOsm/kg (285-295) 04/08/25 05:14 Calcium 8.4 mg/dL (8.5-10.5) L 04/08/25 05:14 Blood Type A Negative 04/07/25 06:50 Rho(D) Type Rh negative 04/07/25 06:50 Antibody Screen Positive 04/07/25 06:50 Antibody Identification Inconclusive 04/07/25 06:50 Vitals Last Vital Signs Temp 98.0 F 04/08/25 00:06 Pulse 80 04/08/25 03:45 Resp 16 04/08/25 03:45 BP 146/79 04/08/25 03:45 Pulse Ox 95 04/08/25 03:45 O2 Del Method Room Air 04/08/25 03:45 Discharge Plan Discharge Patient Disposition: Home Condition: Stable Prescriptions: New Eliquis 2.5 mg tablet 2.5 mg PO BID 14 Days Qty: 28 0RF cefadroxil 500 mg capsule 500 mg PO BID 7 Days Qty: 14 0RF oxycodone 5 mg tablet 5 mg PO Q6H PRN (Reason: pain postop) 7 Days Qty: 28 0RF Continued naproxen 250 mg tablet 500 mg PO BID PRN (Reason: Pain) nitroglycerin 0.4 mg tablet, sublingual 0.4 mg sublingual Q5M PRN (Reason: chest pain) Qty: 30 2RF Rx Instructions: do not exceed 3 doses per episode albuterol sulfate 2.5 mg /3 mL (0.083 %) solution for nebulization 2.5 mg inhalation QID PRN (Reason: shortness of breath or wheezing) Qty: 180 0RF losartan-hydrochlorothiazide 100-25 mg tablet 1 tab PO DAILY Qty: 90 3RF amlodipine 10 mg tablet 10 mg PO DAILY Qty: 90 3RF Probiotic and Acidophilus 300-250 million cell-mg Capsule 1 cap PO PRN PRN (Reason: Digestion) venlafaxine 150 mg capsule,extended release 24hr 150 mg PO DAILY Rx Instructions: TAKE ONE CAPSULE BY MOUTH EVERY DAY dexlansoprazole 60 mg capsule,biphase delayed releas 60 mg PO DAILY Rx Instructions: TAKE ONE CAPSULE BY MOUTH DAILY. Held aspirin 325 mg tablet 325 mg PO DAILY Hold Instructions: Resume on 04/21/25. Discharge Orders: Discharge Order (Routine); Ordered 04/08/25 Ordered By: Arron Mota Other Ambulatory Orders: DME: Walker (Order) Location: None Selected Ordered By: Lester Mcfarlane Physical Therapy Eval and Treat Outpatient (Order) Timeframe: 3 Days Facility: [facility] - Location: Physical Therapy Ordered By: Lester Mcfarlane Referrals: [facility] Outpatient Therapy [Outside] Referral Note: Outpt therpay will call you at home to setup a time to start coming in for therapy. They have been updated that you prefer to do Outpt PT at the [facility]. Charanjit Mcfarlane PA [Physician Instructional Technology Facilitator, Orthopedics] - 04/20/25 9:45 am Discharge Diet: Regular Discharge Activity: Limit activity as instructed Patient Instructions: Acute Wound Care (DC), Precautions after Total Joint Replacement Surgery (DC), Opioid Safety (DC), OB Discharge Report, OB Food/Drug Interaction Guide, Post Anesthesia Care Activity Restrictions/Additional Instructions: Orthopedic discharge instructions Keep incisions clean dry and intact, leave Silverlon bandage dressings on in place for 7 days after that may rinse incisions with warm soapy water pat dry and redress with a dry dressing/new Silverlon bandage Patient may weight-bear as tolerate to the operative extremity Utilize walker as needed Encourage knee range of motion Ice and elevate as needed for pain and swelling Take antibiotic as prescribed for antibiotic infection prophylaxis. Take pain medication as prescribed Take antinausea medication as needed Pain medication can cause constipation. take rhgd-xtj-spelizy stool softeners and or MiraLAX. Take prescribed Eliquis twice daily for the next 14 days for blood clot prevention May supplement for pain with Tylenol kwza-man-irhunfi as needed(1000 mg every 8 hours-do not exceed more than 3000mg in 24-hour period) No baths or soaks Follow-up in the orthopedic office in 2 weeks Contact the office for any questions or concerns Follow-up with your primary doctor for reassessment of postoperative anemia. Would hold aspirin while on Eliquis. Seek medical attention in case of any new concerning symptoms. Discharge Attestations Time Spent in Discharge Care*: less than 30 min Quality Metrics Clinical Quality Measures [ No reported AMI, CVA or VTE this stay] Coding Level of Care Code Acute Code for Chg Fwd Diagnoses S/P knee replacement Z96.659 Time Spent (min) 25
[2025-04-08 10:42] VITALS: BP 137/73; PULSE 84; RESP 15; TEMP 36.5; O2SAT 94
--- NOTE | 2025-04-08 11:57 | PC.OT ---
OT evaluation attempted with patient declining; pt has no concerns going home. OT eval will be attempted again at later time.
== END 2025-04-08 11:42 | disposition home or self-care (01) ==
LOC: OBGYN 12:06
PROVIDERS: Physician Assistant; Admitting Provider Student in an Organized Health Care Education/Training Program; PCP Nurse Practitioner Family; Visit Provider Student in an Organized Health Care Education/Training Program
PROC: 8E0Y0CZ Robotic Assisted Procedure of Lower Extremity, Open Approach (ICD-10-PCS; CPT 27447; principal; 2025-04-07 08:00)
DX: M17.12 Unilateral primary osteoarthritis, left knee (principal); I10 Essential (primary) hypertension; K21.9 Gastro-esophageal reflux disease without esophagitis; I34.1 Nonrheumatic mitral (valve) prolapse; Z79.82 Long term (current) use of aspirin
CPT/HCPCS: 27447; 20985; 36415; 51702; 73562; 80048; 85025; 86850; 86870; 86900; 97116; 97161; 97530; C1713; C1776; G0378; J0131; J0171; J0690; J1885; J2250; J2371; J2704; J2795; J7030; J7120; J9999; L8699

== ENCOUNTER 2025-04-17 05:00 | Outpatient (RCR) | payer OTHER, SELFPAY | END 2025-05-16 23:59 | disposition home or self-care (01) | LOC: TPT 05:00 | PROVIDERS: Visit Provider Student in an Organized Health Care Education/Training Program | DX: Z47.1 Aftercare following joint replacement surgery (principal); Z96.652 Presence of left artificial knee joint | CPT/HCPCS: 97110; 97116; 97140 ==

== ENCOUNTER → 2025-04-19 14:46 | Outpatient (BNVA) | payer OTHER, SELFPAY | PROVIDERS: Visit Provider Nurse Practitioner Family | DX: Z09 Encounter for follow-up examination after completed treatment for conditions other than malignant neoplasm (principal) | CPT/HCPCS: 85025 ==

== ENCOUNTER → 2025-04-20 09:53 | Outpatient (BNVA) | payer OTHER, SELFPAY | PROVIDERS: Visit Provider Physician Assistant | DX: Z96.652 Presence of left artificial knee joint (principal) | CPT/HCPCS: 73560; 73565 ==

== ENCOUNTER → 2025-04-28 16:21 | Outpatient (BNVA) | payer OTHER, SELFPAY | PROVIDERS: Visit Provider Nurse Practitioner Family | DX: R79.89 Other specified abnormal findings of blood chemistry (principal) | CPT/HCPCS: 85025 ==

== ENCOUNTER 2025-05-17 06:30 | Outpatient (RCR) | payer OTHER, SELFPAY | END 2025-06-16 23:59 | disposition home or self-care (01) | LOC: TPT 06:30 | PROVIDERS: PCP Nurse Practitioner Family; Visit Provider Student in an Organized Health Care Education/Training Program | DX: Z47.1 Aftercare following joint replacement surgery (principal); Z96.652 Presence of left artificial knee joint | CPT/HCPCS: 97110; 97140 ==

== ENCOUNTER → 2025-05-25 11:05 | Outpatient (BNVA) | payer OTHER, SELFPAY | PROVIDERS: Visit Provider Physician Assistant | DX: Z96.652 Presence of left artificial knee joint (principal); D69.6 Thrombocytopenia, unspecified | CPT/HCPCS: 73560; 73565; 85025 ==

== ENCOUNTER 2025-06-17 06:00 | Outpatient (RCR) | payer OTHER, MEDICARE, SELFPAY | END 2025-07-17 23:59 | disposition home or self-care (01) | LOC: TPT 06:00 | PROVIDERS: PCP Nurse Practitioner Family; Visit Provider Student in an Organized Health Care Education/Training Program | DX: Z47.1 Aftercare following joint replacement surgery (principal); Z96.659 Presence of unspecified artificial knee joint | CPT/HCPCS: 97110; 97140 ==

== ENCOUNTER → 2025-07-06 10:37 | Outpatient (BNVA) | payer OTHER, MEDICARE, SELFPAY | PROVIDERS: PCP Nurse Practitioner Family; Visit Provider Physician Assistant | DX: Z98.890 Other specified postprocedural states (principal); Z96.659 Presence of unspecified artificial knee joint | CPT/HCPCS: 73560; 73565 ==

== ENCOUNTER 2025-07-18 06:30 | Outpatient (RCR) | payer OTHER, MEDICARE, SELFPAY | END 2025-08-08 09:27 | disposition home or self-care (01) | LOC: TPT 06:30 | PROVIDERS: PCP Nurse Practitioner Family; Visit Provider Student in an Organized Health Care Education/Training Program | DX: Z47.1 Aftercare following joint replacement surgery (principal) | CPT/HCPCS: 97110 ==

== ENCOUNTER 2025-10-01 10:36 | Inpatient (IN) | payer OTHER, MEDICARE, SELFPAY ==
[2025-10-01] VITALS (20 sets, daily range): BP systolic 91–124; BP diastolic 61–75; PULSE 72–98; RESP 14–27; TEMP 36.8–37.3; O2SAT 88–99; BMI 30.9; BMI 31.9
--- NOTE | 2025-10-01 11:04 | XRR_ITS ---
PROCEDURE INFORMATION: Exam: XR Chest Exam date and time: 10/01/2025 11:38 AM Age: 65 years old Clinical indication: Pain; Chest pressure; Additional info: Chest pain TECHNIQUE: Imaging protocol: Radiologic exam of the chest. Views: 1 view. COMPARISON: CT angio chest PE protcl [id number] 02/14/2022 8:32 PM FINDINGS: Lungs: No active infiltrate or focal parenchymal abnormality. Pulmonary vascularity is normal. Pleural spaces: No pleural effusion. No pneumothorax. Heart/Mediastinum: Normal cardiomediastinal sillhouette. Bones/joints: Unremarkable. XR/XR chest 1V portable [id number] IMPRESSION: No acute cardiopulmonary abnormality.
[2025-10-01 11:11] LABS: Hematocrit 40.0 % (36-47); Hemoglobin 12.80 g/dL (11.27-16.99); Mean Corpuscular HGB Conc 32.0 g/dL (30-55); Mean Corpuscular Hemoglobin 27.8 pg (27-33); Mean Corpuscular Volume 86.8 fl (85-98); Nucleated Red Blood Cells % 0 %; Platelet Count 413 10^3/cmm (157-399); Red Blood Count 4.61 10^6/uL (3.85-5.65); White Blood Count 15.40 10^3/uL (3.29-11.43)
[2025-10-01 11:25] LABS: Alanine Aminotransferase 15 U/L (0-33); Albumin Level 4.5 g/dL (3.5-5.2); Alkaline Phosphatase 105 U/L (35-105); Aspartate Amino Transferase 30 U/L (0-32); Blood Urea Nitrogen 27 mg/dL (8-23); Calcium 10.1 mg/dL (8.5-10.5); Carbon Dioxide 24 mmol/L (22-29); Chloride 102 mmol/L (98-107); Globulin 2.6 g/dL (1.3-4.6); Glucose 156 mg/dL (65-115); Osmolality Calculated 292 mOsm/kg (285-295); Sodium 137 mmol/L (136-145); Total Protein 7.1 g/dL (6.6-8.7)
[2025-10-01 11:26] LABS: Anion Gap 15.5 (5-19); Potassium 4.5 mmol/L (3.5-5.1)
[2025-10-01 11:27] LABS: Troponin(5th) Baseline 739 ng/L (0-10)
--- NOTE | 2025-10-01 11:44 | ED_ITS ---
HPI - Chest Pain 2 General: Chief Complaint: Chest Pain Stated Complaint: chest pressue / SOB Time Seen by Provider: 10/01/25 10:43 History of Present Illness: 65-year-old female presents emergency ro om with intermittent chest pain began last night while she was moving she is moving from 1 address to another half the chest pain started at worst it was at 3 of 10 she tried to relax it would get better she tried to have a bowel movement strained her chest pain got worse Harrell is persisting all night on arrival here she rates it at a 1 of 2 out of 10 she is no longer have any diaphoresis or dyspnea. She has no known history of any coronary artery disease. She is not diabetic she does have a history of hypertension no previous cardiac evaluations for coronary artery disease she has had some palpitations in the past echo done several years ago showed some mild diastolic dysfunction but otherwise a normal ejection fraction some mitral valve prolapse. She is a non-smoker. Associated symptoms: Deny abdominal pain, dyspnea or fever(s) Related Data Home Medications ?Medication ?Instructions ?Recorded ?Confirmed Lactobacillus comb 1 cap PO PRN PRN Digestion 0 02/14/22 07/06/25 no.3-PAG-[id number] 300 million cell-250 mg capsule (Probiotic and Acidophilus) aspirin 325 mg tablet 325 mg PO DAILY 06/25/23 Held on 04/08/25. Instructions: Resume on 04/21/25. naproxen 250 mg tablet 500 mg PO BID PRN Pain 01/2707/06/25 dexlansoprazole 60 mg 60 mg PO DAILY 04/05/25 08/ capsule,biphase delayed release venlafaxine 150 mg 150 mg PO DAILY 04/05/25 capsule,extended release 24 hr Previous Rx's ?Medication ?Instructions ?Recorded nitroglycerin 0.4 mg sublingual 0.4 mg sublingual Q5M PRN chest 02/18/22 tablet pain #30 tabs albuterol sulfate 2.5 mg/3 mL 2.5 mg (3 mL) inhalation QID PRN 12/03/24 (0.083 %) solution for nebulization shortness of breat h or wheezing #180 mL losartan 100 1 tab PO DAILY #90 tabs 04/0 9/25 mg-hydrochlorothiazide 25 mg tablet amlodipine 10 mg tablet 10 mg PO DAILY #90 tabs 02/15 03/11 oxycodone 5 mg tablet 5 mg PO Q6H PRN pain postop 7 days 04/26/25 #28 tabs triamcinolone acetonide 0.1 % 1 applic topical DAILY # 454 grams 04/26/25 topical cream nystatin-triamcinolone 100,000 1 applic topical BID 14 days #60 04/29/25 unit/gram-0.1 % topical ointment grams furosemide 20 mg tablet (Lasix) 20 mg PO QAM #30 tabs 07/20/25 potassium chloride 10 mEq 10 meq PO DAILY #30 caps 02/08 capsule,extended release Allergies Allergy/AdvReac Type Severity Reaction Status Date / Time Penicillins Allergy Hives, Verified 07/06/25 10:54 Itching Sulfa (Sulfonamide Allergy Hives, Verified 07/06/25 10:54 Antibiotics) Itching Review of Systems 2 Const: Denies: fever(s) or chills Card: Reports: chest pain; Denies: edema or swelling of feet/ankles Resp: Denies: dyspnea GI: Denies: abdominal pain : Denies: dysuria, urinary frequency or urinary urgency Musc: Denies: neck pain or back pain Skin/Breast: Denies: rash PFSH ED 2 PFSH: Medical History Osteopenia No pertinent past medical history neghx: dm,thyroid,dvt/pe PCP: Jess Alarcon MVP (mitral valve prolapse) Atypical glandular cells of undetermined significance (TERA) on cervical Pap smear (~2018) resolved Hiatal hernia Surgical History H/O dilation and curettage History of appendectomy H/O tubal ligation H/O knee surgery (~2017) Family History Mother Heart disease Hypertension Hyperlipidemia Diabetes Father Heart disease Hypertension Hyperlipidemia Family/Other Ovarian cancer Maternal Cousin Breast cancer Paternal Aunt--dx age 40's Grandmother Breast cancer Paternal-- dx age 50's Stroke Paternal Denies family history of Uterine cancer Thyroid disease Social History Smoking and tobacco/nicotine status: never used tobacco/nicotine Physical Exam 2 Const: GENERAL APPEARANCE: cooperative ORIENTATION/CONSCIOUSNESS: Yes awake, Yes oriented to person, Yes oriented to place and Yes oriented to time HENMT: COMMON NORMALS: normocephalic, atraumatic and hearing grossly normal bilaterally HEAD & SCALP: normocephalic and atraumatic Resp: COMMON NORMALS: normal respiratory effort, No retractions, No use of accessory muscles and clear to auscultation bilaterally AUSCULTATION: clear to auscultation bilaterally Cardio: COMMON NORMALS: regular rate, regular rhythm and No murmurs present (Cardio) RATE: regular rate RHYTHM: regular rhythm GI: COMMON NORMALS: Soft to palpation and No hepatosplenomegaly present A USCULTATION: Yes normoactive bowel sounds PALPATION: Yes Soft to palpation, No Tenderness to palpation present (GI), No Guarding due to palpation present (GI) and Yes No hepatosplenomegaly present Extremity: COMMON NORMALS: normal to inspection, capillary refill normal, no clubbing, cyanosis or edema, no calf tenderness and no pedal edema Neuro: SENSORIUM/ORIENTATION: Yes oriented to person, Yes oriented to place and Yes oriented to time Skin: COMMON NORMALS: no rashes or lesions noted GENERAL SKIN EXAM: no rashes or lesions noted Course 2 Vital Signs: Vital signs: Vital Signs Temperature 98.3 F 10/01/25 10:41 Pulse Rate 85 10/01/25 12:00 Respiratory Rate 17 10/01/25 10:41 Blood Pressure 103/63 10/01/25 12:00 Pulse Oximetry 94 10/01/25 12:00 Oxygen Delivery Me thod Room Air 10/01/25 12:00 MDM - Chest Pain Medical Decision Making Patient seen initially differential diagnosis include acute coronary syndrome pneumonia and reflux. Cardiac enzymes chest x-rays CBC CMP EKG ordered. Initial troponin greater than 700 patient has NSTEMI repeat EKG there is no acute ST elevation chest x-ray does show increased vascular markings. She been started on heparin we initially started topical nitro however she had significant drop in her blood pressure to 94 systolic the nitro was removed will give her little bit of fluid bolus also have given her Lasix discussed with hospitalist will admit to [facility] cardiology has also been consulted Medical Records I reviewed the patient's medical records. Lab Data I reviewed the patient's lab results. 10/01/25 10:50 10/01/25 10:50 Laboratory Results WBC 15.40 10^3/uL (3.29-11.43) H 10/01/25 10:50 RBC 4.61 10^6/uL (3.85-5.65) 10/01/25 10:50 Hgb 12.80 g/dL (11.27-16.99) 10/01/25 10:50 Hct 40.0 % (36-47) 10/01/25 10:50 MCV 86.8 fl (85-98) 10/01/25 10:50 MCH 27.8 pg (27-33) 10/01/25 10:50 MCHC 32.0 g/dL (30-55) 10/01/25 10:50 RDW 13.1 % (12.1-15.1) 10/01/25 10:50 Plt Count 413 10^3/cmm (157-399) H 10/01/25 10:50 MPV 10.1 fL (7.4-10.4) 10/01/25 10:50 Neut % (Auto) 89.4 % 10/01/25 10:50 Lymph % (Auto) 6.4 % 10/01/25 10:50 [place] % (Auto) 3.6 % 10/01/25 10:50 Eos % (Auto) 0.0 % 10/01/25 10:50 Baso % (Auto) 0.3 % 10/01/25 10:50 Neut # (Auto) 13.76 10^3/uL (1.8-7.7) H 10/01/25 10:50 Lymph # (Auto) 1.0 10^3/uL (0.8-4.8) 10/01/25 10:50 [place] # (Auto) 0.6 10^3/uL (0.2-0.9) 10/01/25 10:50 Eos # (Auto) 0.0 10^3/uL (0.0-0.8) 10/01/25 10:50 Baso # (Auto) 0.1 10^3/uL (0.0-0.1) 10/01/25 10:50 Nucleated RBC % (auto) 0 % 10/01/25 10:50 Nucleated RBCs # 0.0 /100WBC 10/01/25 10:50 Sodium 137 mmol/L (136-145) 10/01/25 10:50 Potassium 4.5 mmol/L (3.5-5.1) 10/01/25 10:50 Chloride 102 mmol/L (98-107) 10/01/25 10:50 Carbon Dioxide 24 mmol/L (22-29) 10/01/25 10:50 Anion Gap 15.5 (5-19) 10/01/25 10:50 BUN 27 mg/dL (8-23) H 10/01/25 10:50 Creatinine 0.8 mg/dL (0.5-0.9) 10/01/25 10:50 GFR Calculation 72.0 mL/min (90-130) L 10/01/25 10:50 Glucose 156 mg/dL (65-115) H 10/01/25 10:50 Calculated Osmolality 292 mOsm/kg (285-295) 10/01/25 10:50 Calcium 10.1 mg/dL (8.5-10.5) 10/01/25 10:50 Total Bilirubin 0.4 mg/dL (0.15-1.2) 10/01/25 10:50 AST 30 U/L (0-32) 10/01/25 10:50 ALT 15 U/L (0-33) 10/01/25 10:50 Alkaline Phosphatase 105 U/L (35-105) 10/01/25 10:50 Troponin T Baseline 739 ng/L (0-10) H* 10/01/25 10:50 Total Protein 7.1 g/dL (6.6-8.7) 10/01/25 10:50 Albumin 4.5 g/dL (3.5-5.2) 10/01/25 10:50 Globulin 2.6 g/dL (1.3-4.6) 10/01/25 10:50 All radiology interpretation(s) finalized by discharge EKG Data EKG 1: I personally reviewed and interpreted this EKG as follows: Interpretation: EKG 10/01/2025 1042 normal sinus rhythm nonspecific ST changes ventricular rate of 80 OR interval 176 QTc [address] changes noted compared to previous EKG 02/14/2022 no significant changes. EKG 2: I personally reviewed and interpreted this EKG as follows: Interpretation: EKG 10/01/2025 1140 normal sinus rhythm nonspecific ST changes rate of 82. OR interval 174 QTc [address] changes noted no significant change from EKG done earlier same day Discharge Plan Discharge Patient Disposition: Admitted As Inpatient Clinical Impression: Acute non-ST elevation myocardial infarction (NSTEMI) Condition: Stable Coding Level of Care Code ED Casting Machine Operator Helper for Chg Fwd Heart Score HEART Score Components History: Highly Suspicious EKG: Non-specific Changes Age: 65 or more yrs Risk Factors: 1 or 2 Risk Factors Troponin: Baseline Trop >45 ng/L HEART Score RESULT HEART Score: 8
[2025-10-01] MEDS: nitroglycerin 1 gm/inch oint Pkt 0.5 INCH TOPICAL (11:49)
--- NOTE | 2025-10-01 11:59 | USCV_ITS ---
Jess Christensen Age: 65 Gender: F : 1960 Exam Date: 10/01/2025 14:18 Ordering Phys: Santo Ellis MD ([email or web address]) Technologist: INOCENCIO Exam Location: [facility] [place] Indication: cad BP: 103 / 63 HR: 80 Rhythm: Sinus Technical Quality: Adequate MEASUREMENTS (Male / Female) Normal Values 2D ECHO LV Diastolic Diameter PLAX 5.3 cm 4.2 - 5.9 / 3.9 - 5.3 cm IVS Diastolic Thickness 0.8 cm 0.6 - 1.0 / 0.6 - 0.9 cm IVS Systolic Thickness 0.8 cm LVPW Diastolic Thickness 0.8 cm 0.6 - 1.0 / 0.6 - 0.9 cm LVPW Systolic Thickness 1.5 cm LVOT Diameter 2.0 cm LV Ejection Fraction 2D Teich 47.8 % LV Ejection Fraction MOD 4C 45.6 % LV Ejection Fraction MOD 2C 52.1 % LV Ejection Fraction 2C AL 52.4 % LA Diameter 3.1 cm RA Systolic Volume 4C AL 14.0 ml RA Systolic Volume 4C MOD 13.4 ml LA Sys Volume AL 45.6 cm cubed LA Sys Volume Index AL 23.4 cm cubed/m squared Aorta at Sinotubular Diameter 2.5 cm IVC Diameter 1.4 cm M-MODE LA Ao Ratio MM 1.5 AV Cusp Separation MM 1.2 cm DOPPLER AV Peak Velocity 378.0 cm/s LVOT Peak Velocity 372.0 cm/s AV Area Cont Eq vti 3.2 cm squared AV Area Cont Eq pk 3.2 cm squared MV Peak Velocity 110.0 cm/s MV Area PHT 5.2 cm squared Mitral E to A Ratio 1.5 TV Peak Velocity 346.0 cm/s TR Peak Velocity 352.0 cm/s TR Peak Gradient 49.6 mmHg TR Mean Velocity 290.0 cm/s TR Mean Gradient 34.9 mmHg TR Velocity Time Integral 77.4 cm PV Peak Velocity 88.0 cm/s RV Ejection Time 0.3 s FINDINGS Left Ventricle Normal left ventricular cavity size. There is akinesis of all apical and mid myocardial segments with hyperdynamic basal contractility consistent with the pattern of Takotsubo's cardiomyopathy. Ischemic cardiomyopathy cannot be excluded. Estimated ejection fraction 40% which is moderately reduced. There is moderate hypertrophy of the basal septum measuring 1.8 cm. Turbulence is seen in the left ventricular outflow tract with color Doppler due to moderate systolic anterior motion of the anterior mitral valve leaflet and the basasl septal hypertrophy. There is a moderately elevated maximum left ventricular outflow tract pressure gradient at rest of 51 mmHg and 69 mmHg with valsalva. Findings consistent with hypertrophic cardiomyopathy. Normal left ventricular diastolic function. Right Ventricle Normal right ventricular size and systolic function Right Atrium Normal right atrial size Left Atrium Normal left atrial size IA Septum Normal appearance of the interatrial septum Mitral Valve Moderate systolic anterior motion of the anterior mitral valve leaflet. Mild mitral valve regurgitation. Aortic Valve Increased velocity across the aortic valve due to increased velocity through the left ventricular outflow tract and not due to aortic valve stenosis. No aortic valve regurgitation Tricuspid Valve Mild tricuspid valve regurgitation. Moderate pulmonary hypertension, PASP 50 mmHg. Pulmonic Valve Trace pulmonic valve regurgitation Pericardium No pericardial effusion Aorta Upper limits of normal proximal ascending thoracic aorta measuring 3.5 cm IVC Normal IVC size CONCLUSIONS 1. Normal left ventricular cavity size. There is akinesis of all apical and mid myocardial segments with hyperdynamic basal contractility consistent with the pattern of Takotsubo's cardiomyopathy, with moderately reduced EF of 40%. Ischemic cardiomyopathy cannot be excluded. 2. There is moderate hypertrophy of the basal septum measuring 1.8 cm. Turbulence is seen in the left ventricular outflow tract with color Doppler due to moderate systolic anterior motion of the anterior mitral valve leaflet and the basasl septal hypertrophy. There is a moderately elevated maximum left ventricular outflow tract pressure gradient at rest of 51 mmHg and 69 mmHg with valsalva. Findings consistent with hypertrophic cardiomyopathy. 3. Moderate systolic anterior motion of the anterior mitral valve leaflet. Mild mitral valve regurgitation. 4. Moderate pulmonary hypertension, PASP 50 mmHg. Santo Ellis MD, FACC (Electronically Signed) Final Date: 01 October 2025 16:49 S
[2025-10-01] MEDS: heparin 5,000 unit/mL INJ 1 mL IVP (12:09)
[2025-10-01] MEDS: heparin drip 25,000 UNIT/500 ML PREMIX 23 UNIT IV (12:10)
--- NOTE | 2025-10-01 13:04 | ECG_ITS ---
[facility] Test Date: 2025-10-01 Pat Name: Jess Christensen Department: Room: Gender: Female Smoke Inspector: : 1960 Requested By: Pedro Ortiz Order Number: [id number] Srini MD: Santo Ellis M.D. Measurements Intervals Cord Rate: 80 P: 21 ND: 176 QRS: 40 QRSD: 90 T: 118 QT: 365 QTc: 424 Interpretive Statements SINUS RHYTHM T-WAVE ABNORMALITY Compared to ECG 02/14/2022 21:27:03 T-wave abnormality now present Electronically Signed On 10-02-2025 16:21:11 AIR TECHNICIAN by Santo Ellis M.D. [email or web address]
[2025-10-01 13:27] LABS: Troponin 5 2HR 625.7 ng/L (0-10)
--- NOTE | 2025-10-01 14:58 | ECG_ITS ---
[facility] Date: 2025-10-01 Pat Name: Jess Christensen Department: Room: 105 Gender: Female Fine Arts Model: : 1960 Requested By: Pedro Ortiz Order Number: [id number] Srini MD: Santo Ellis M.D. Measurements Intervals [place] Rate: 83 P: 33 CT: 166 QRS: 41 QRSD: 97 T: 116 QT: 373 QTc: 439 Interpretive Statements SINUS RHYTHM T-WAVE ABNORMALITY Compared to ECG 10/01/2025 10:42:35 T-wave abnormality still present Electronically Signed On 10-02-2025 15:21:16 SUPERVISOR FRAME SAMPLE AND PATTERN by Santo Ellis M.D. [id number] [id number]
--- NOTE | 2025-10-01 16:01 | ECG_ITS ---
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 Measurements Intervals [place] Rate: 87 P: 7 OR: 148 QRS: 45 QRSD: 93 T: 116 QT: 353 QTc: 425 Interpretive Statements SINUS RHYTHM T-WAVE ABNORMALITY Compared to ECG 10/01/2025 14:58:08 No significant changes Electronically Signed On 10-02-2025 16:19:41 CALL CENTER ASSOCIATE by Santo Ellis M.D. [email or web address] [id number]
--- NOTE | 2025-10-01 16:38 | PC.NURSE ---
per LIZBETH Flood, at patient's bedside. Do not give lasix and fluids. Patient was reporting a different feeling radiating to her neck and felt extreme weakness. Provider called and EKG done. Provider came to bedside to discuss history and plan with patient.
--- NOTE | 2025-10-01 17:14 | PM.HP ---
Providers/Chief Complaint Admitting Physician: Kaushal Marcus MD Primary Care Provider: BREANNE Phan Chief Complaint: chest pressure / SOB History of Present Illness Jess Christensen is a 65 year old female with pmhx of HTN, NSTEMI, GERD, osteopenia, mitral valve prolapse, murmur, left hip and knee pain, and knee replacement presenting with complaints of chest pain. Patient endorses about 1 to 2 weeks of shortness of breath on exertion. Last night, in the process of moving between two locations she began having chest pain rated 4/10. This was exacerbated when she had a bowel movement with strain. She took a aspirin last night around 9:30 PM and went to bed. Any time she stands up to go to the bathroom she becomes shaky, lightheaded, pale, and diaphoretic with a feeling of heavy arms and near syncope. She also has nausea without vomiting and feels like there is a band going across her chest that radiates up her left neck more so than right. This morning, she did not take her home morning medications because she took her blood pressure and it was very low at 87/60. Symptoms persisted and EMS was called by family. Upon arrival, family states that EMS did an EKG and took vitals but ultimately advised patient that she should be fine after drinking Gatorade. They helped her out of the EMS vehicle and family took her here to [facility] ED via private vehicle. Family at bedside. Of note, patient does have a known history of diverticulosis and admits small amounts of sharon red blood in stool that she has had before. Patient is a of approximately 2 years and lives home alone in [facility]. She has a lot of supportive family that lives close by. In the ED, BP 117/69, HR 72, RR 17, T98.3, O2 97. WBC 15.4, PLT 413, Hgb 12.8. BUN 27, creatinine 0.8. Glucose 196. Serial Troponin, initial 739, Troponin T 120 625.7, EKG; sinus rhythm, T wave abnormality rate 83. Chest xray; no acute cardiopulmonary abnormality. Patient endorses pain 2?3/10 in the ED. AAOX4, alert, and resting. Will admit to hospitalist service for further evaluation and treatment. Cardiology consulting. Review of Systems Const: Denies: fever(s) or chills Card: Reports: chest pain; Denies: edema or swelling of feet/ankles Resp: Denies: dyspnea GI: Denies: abdominal pain : Denies: dysuria, urinary frequency or urinary urgency Musc: Denies: neck pain or back pain Skin/Breast: Denies: rash Medications/Allergies Home Medications ?Medication ?Instructions ?Recorded ?Confirmed ?Last Taken ?Type Lactobacillus comb 1 cap PO PRN PRN Digestion 02/14/22 10/01/25 02/14/22 History no.3-NTM-mihmhalalo 300 million cell-250 mg capsule (Probiotic and Acidophilus) nitroglycerin 0.4 mg sublingual 0.4 mg sublingual Q5M PRN chest 02/18/22 10/01/25 Unknown Rx tablet pain #30 tabs aspirin 325 mg tablet 325 mg PO DAILY PRN Pain 06/25/23 10/01/25 09/30/25 History Held on 04/08/25. Instructions: Resume on 04/21/25. albuterol sulfate 2.5 mg/3 mL 2.5 mg (3 mL) inhalation QID PRN 12/03/24 10/01/25 Unknown Rx (0.083 %) solution for nebulization shortness of breath or wheezing #180 mL losartan 100 1 tab PO DAILY #90 tabs 02/23/25 10/01/25 09/30/25 Rx mg-hydrochlorothiazide 25 mg tablet amlodipine 10 mg tablet 10 mg PO DAILY #90 tabs 02/28/25 10/01/25 09/30/25 Rx dexlansoprazole 60 mg 60 mg PO DAILY 04/05/25 10/01/25 09/30/25 History capsule,biphase delayed release venlafaxine 150 mg 150 mg PO DAILY 04/05/25 10/01/25 09/30/25 History capsule,extended release 24 hr furosemide 20 mg tablet (Lasix) 20 mg PO QAM PRN Edema 10/01/25 10/01/25 Unknown History naproxen sodium 220 mg tablet 440 mg PO BID PRN Pain 10/01/25 10/01/25 09/30/25 History nystatin-triamcinolone 100,000 1 applic topical BID PRN Skin 10/01/25 10/01/25 Unknown History unit/gram-0.1 % topical ointment Irritation potassium chloride 10 mEq 10 meq PO DAILY PRN when taking 10/01/25 10/01/25 Unknown History capsule,extended release lasix Allergies Allergy/AdvReac Type Severity Reaction Status Date / Time Penicillins Allergy Hives, Verified 07/06/25 10:54 Itching Sulfa (Sulfonamide Allergy Hives, Verified 07/06/25 10:54 Antibiotics) Itching PFSH Acute PFSH: Medical History Osteopenia No pertinent past medical history neghx: dm,thyroid,dvt/pe PCP: Jess Alarcon MVP (mitral valve prolapse) Atypical glandular cells of undetermined significance (TERA) on cervical Pap smear (~2018) resolved Hiatal hernia Surgical History H/O dilation and curettage History of appendectomy H/O tubal ligation H/O knee surgery (~2016) Family History Mother Heart disease Hypertension Hyperlipidemia Diabetes Father Heart disease Hypertension Hyperlipidemia Family/Other Ovarian cancer Maternal Cousin Breast cancer Paternal Aunt--dx age 40's Grandmother Breast cancer Paternal-- dx age 50's Stroke Paternal Denies family history of Uterine cancer Thyroid disease Social History Smoking and tobacco/nicotine status: never used tobacco/nicotine Vitals/I&O/Wt Last Vital Signs Temp 98.3 F 10/01/25 10:41 Pulse 85 10/01/25 16:59 Resp 18 10/01/25 16:59 BP 98/66 10/01/25 16:00 Pulse Ox 96 10/01/25 16:59 O2 Del Method Nasal Cannula 10/01/25 16:59 O2 Flow Rate 2 10/01/25 16:59 10/01/25 10/01/25 10/01/25 06:59 14:59 22:59 Intake Total 500 / 500 Balance 500 / 500 Weight last 48 hrs Weight 84.4 kg Weight 81.647 kg Physical Exam Const: COMMON NORMALS: patient oriented x3 and alert GENERAL APPEARANCE: cooperative ORIENTATION/CONSCIOUSNESS: Yes awake HENMT: COMMON NORMALS: oropharynx normal Neck/C-Spine: COMMON NORMALS: no JVD Resp: COMMON NORMALS: normal respiratory effort and clear to auscultation bilaterally AUSCULTATION: clear to auscultation bilaterally Cardio: COMMON NORMALS: no JVD, regular rhythm, S1 normal heart sound present, S2 normal heart sound present and No murmurs present (Cardio) RHYTHM: regular rhythm HEART SOUNDS: S1 normal heart sound present and S2 normal heart sound present GI: COMMON NORMALS: Normal to inspection, nondistended, normoactive bowel sounds present, Soft to palpation and non-tender PALPATION: Yes Soft to palpation Extremity: COMMON NORMALS: no joint enlargement and no pedal edema OTHER: LLE post op dressing and elastic bandage. No swelling. Neuro: COMMON NORMALS: patient oriented x3 and moves all extremities SENSORIUM/ORIENTATION: Yes alert Skin: COMMON NORMALS: no rashes or lesions noted GENERAL SKIN EXAM: no rashes or lesions noted Data 10/01/25 10:50 10/01/25 10:50 A&P Assessment and plan 1. Chest pain: EKG; sinus rhythm, T wave abnormality rate 83 Serial Troponin, initial 739, Troponin T 120 625.7 Chest xray; no acute cardiopulmonary abnormality Past echo showed mild diastolic dysfunction and a normal EF - New echo pending Continue home ASA Telemetry Pain management Heparin started in ED Supplemental o2 Pulse oximetry NPO diet Cardiology being consulted by ED, Dr. Ellis, recommendations appreciated 2. Essential hypertension: History of hypertension On home losartan and amlodipine Holding home medication in setting of new hypotension Today 117/69 >> 90's systolic Monitor BP 3. Elevated BUN: Creatinine WNL at 0.8, BUN 27 Avoid nephrotoxic agents On home Lasix - hold in setting of hypotension Monitor CMP 4. Hyperglycemia: Glucose 156 No history of DM noted A1c PDMP PDMP Reviewed: Not Reviewed Attestations Medical Necessity Statement*: Continued hospitalization in observation status for > 2 midnights to monitor for chest pain rule out and pain management with general medical management. Diagnoses Chest pain R07.9 Essential hypertension I10 Elevated BUN R79.9 Hyperglycemia R73.9 Time Spent (min) 70
--- NOTE | 2025-10-01 17:25 | P.CONIM_ITS ---
Providers/Reason For Consult 2 Consulting Physician/Specialty*: Santo Ellis MD Reason for Consult*: Chest pain Attending Physician: Aleena Bey EDGE BANDING MACHINE OFFBEARER, SAFETY CLOTHING AND EQUIPMENT DEVELOPER Primary Care Provider: BREANNE Phan History of Present Illness History of Present Illness Clarification: Patient was seen in consultation and this note was created last evening 10/01/25 but was accidentally not signed. Jess Christensen is a 65 year old female with a history of hypertension and a family history of coronary artery disease who presented with approximately 8 days worth of bandlike pain around her chest associated with shortness of breath worse with walking short distances in her house. She also has felt lightheadedness. Socially, she has been undergoing a move and also her cousin has and the was today. In the emergency room her EKG was significant for mild T wave inversions in the lateral leads and a troponin of 739. After receiving Nitropaste the patient's blood pressure dropped and this was discontinued. She was started on IV heparin for non-ST elevation myocardial infarction. The patient states she has had some intermittent tightness in her chest since the ER presentation. Echo 10/01/2025: 1. Normal left ventricular cavity size. There is akinesis of all apical and mid myocardial segments with hyperdynamic basal contractility consistent with the pattern of Takotsubo's cardiomyopathy, with moderately reduced EF of 40%. Ischemic cardiomyopathy cannot be excluded. 2. There is moderate hypertrophy of the basal septum measuring 1.8 cm. Turbulence is seen in the left ventricular outflow tract with color Doppler due to moderate systolic anterior motion of the anterior mitral valve leaflet and the basasl septal hypertrophy. There is a moderately elevated maximum left ventricular outflow tract pressure gradient at rest of 51 mmHg and 69 mmHg with valsalva. Findings consistent with hypertrophic cardiomyopathy. 3. Moderate systolic anterior motion of the anterior mitral valve leaflet. Mild mitral valve regurgitation. 4. Moderate pulmonary hypertension, PASP 50 mmHg. Medications/Allergies Home Medications ?Medication ?Instructions ?Recorded ?Confirmed ?Last Taken ?Type Lactobacillus comb 1 cap PO PRN PRN Digestion 0 02/14/22 10/01/25 02/14/22 History no.4-ENR-ujrrxmsgpg 300 million cell-250 mg capsule (Probiotic and Acidophilus) nitroglycerin 0.4 mg sublingual 0.4 mg sublingual Q5M PRN chest 02/18/22 10/01/25 Unknown Rx tablet pain #30 tabs aspirin 325 mg tablet 325 mg PO DAILY PRN Pain 08/0910/01/25 09/30/25 History Held on 04/08/25. Instructions: Resume on 04/21/25. albuterol sulfate 2.5 mg/3 mL 2.5 mg (3 mL) inhalation QID PRN 12/03/24 10/01/25 Unknown Rx (0.083 %) solution for nebulization shortness of breat h or wheezing #180 mL losartan 100 1 tab PO DAILY #90 tabs 0408/1110/01/25 09/30/25 Rx mg-hydrochlorothiazide 25 mg tablet amlodipine 10 mg tablet 10 mg PO DAILY #90 tabs 02/1510/01/25 09/30/25 Rx dexlansoprazole 60 mg 60 mg PO DAILY 04/05/2509/1709/30/25 History capsule,biphase delayed release venlafaxine 150 mg 150 mg PO DAILY 04/05/2509/30/25 History capsule,extended release 24 hr furosemide 20 mg tablet (Lasix) 20 mg PO QAM PRN Edema 10/01/25 10/01/25 Unknown History naproxen sodium 220 mg tablet 440 mg PO BID PRN Pain 1 12/01/24 10/01/25 09/30/25 History nystatin-triamcinolone 100,000 1 applic topical BID [place] N Skin 10/01/25 10/01/25 Unknown History unit/gram-0.1 % topical ointment Irritation potassium chloride 10 mEq 10 meq PO DAILY PRN when nelly ing 10/01/25 10/01/25 Unknown History capsule,extended release lasix Allergies Allergy/AdvReac Type Severity Reaction Status Date / Time Penicillins Allergy Hives, Verified 07/06/25 10:54 Itching Sulfa (Sulfonamide Allergy Hives, Verified 07/06/25 10:54 Antibiotics) Itching Current Medications Generic Name Dose Route Start Last Admin Trade Name Freq PRN Reason Stop Dose Admin Heparin Sodium/Sodium Chloride 25,000 unit in 500 mls @ 0 mls/hr 10/01/25 11:45 10/01/25 12:10 Heparin Drip IV 14.09 unit/kg/hr CONT KAROLYN 23 mls/hr Protocol Administration Per Protocol Sodium Chloride 1,000 mls @ 100 mls/hr 10/01/25 12:41 10/01/25 16:38 Sodium Chloride 0.9% IV Not Given .Q10H KAROLYN PFSH Acute 2 PFSH: Medical History (Updated 10/01/25 @ 17:48 by BELINDA Monroe, SAFETY CLOTHING AND EQUIPMENT DEVELOPER) Osteopenia No pertinent past medical history neghx: dm,thyroid,dvt/pe PCP: Jess Alarcon MVP (mitral valve prolapse) Atypical glandular cells of undetermined significance (TERA) on cervical Pap smear (~2018) resolved Hiatal hernia Surgical History H/O dilation and curettage History of appendectomy H/O tubal ligation H/O knee surgery (~2016) Family History Mother Heart disease Hypertension Hyperlipidemia Diabetes Father Heart disease Hypertension Hyperlipidemia Family/Other Ovarian cancer Maternal Cousin Breast cancer Paternal Aunt--dx age 40's Grandmother Breast cancer Paternal-- dx age 50's Stroke Paternal Denies family history of Uterine cancer Thyroid disease Social History Smoking and tobacco/nicotine status: never used tobacco/nicotine Vitals/I&O/Wt Last Vital Signs Temp 98.3 F 10/01/25 10:41 Pulse 85 10/01/25 16:59 Resp 18 10/01/25 16:59 BP 98/66 10/01/25 16:00 Pulse Ox 96 10/01/25 16:59 O2 Del Method Nasal Cannula 10/01/25 16:59 O2 Flow Rate 2 10/01/25 16:59 10/01/25 10/01/25 10/01/25 06:59 14:59 22:59 Intake Total 500 / 500 Balance 500 / 500 Weight last 48 hrs Weight 186 lb 1.122 oz Weight 180 lb Physical Exam 2 Narrative: General: In no acute distress Neck: No jugular venous distention or carotid bruits Heart: Normal S1 and S2 with a regular rate and rhythm, 2 out of 6 systolic murmur Lungs: Normal respiratory effort with no use of intercostal muscles, clear lungs sounds to auscultation Extremities: Trace left leg edema Neuro: Alert and oriented x 3 Data 10/02/25 03:02 10/02/25 03:02 A&P Assessment and plan 1. Acute non-ST elevation myocardial infarction (NSTEMI): Possibly due to ACS versus Takotsubo's cardiomyopathy IV heparin ASA 81mg daily Atorvastatin 80mg qhs BB once BP >110/[address] Escobar who will perform LHC in the morning If developed recurrent CP this evening will take her to molder labels tonight 2. Essential hypertension: BP became hypotensive after Nitro paste Hold all antihypertensive medications at this time I will give 1L of NS with caution due to reduced EF of 40% 3. Cardiomyopathy: Type not yet known but ischemic or Takotsubo's possible and new compared to echo on 03/2024 Unable to start GDMT due to lowish blood pressure 1L NS being cautiously started for the hypotension and the LVOT obstruction 4. Left ventricular hypertrophy: Moderate basal septal hypertrophy (1.8 cm) with moderate LVOT obstruction with current hyperdynamic function of the basal myocardial segments Would like to start metoprolol 12.5mg bid as soon as BP >110/60 PDMP PDMP Reviewed: Not Reviewed Coding Level of Care Code Acute Code for [facility] Diagnoses Acute non-ST elevation myocardial infarction (NSTEMI) I21.4 Essential hypertension I10 Cardiomyopathy I42.9 Left ventricular hypertrophy I51.7
[2025-10-01] MEDS: pantoprazole 40 mg SDV IVP (17:34)
--- NOTE | 2025-10-01 17:44 | PC.NURSE ---
per Dr Ellis run one bag of fluid at 150ml/hr and then stop. Patient to be NPO after midnight for possible cardiac cath tomorrow.
[2025-10-01 18:50] LABS: Troponin 5 6HR 591.9 ng/L (0-10)
[2025-10-01 18:59] LABS: Partial Thromboplastin Time 169.6 SECONDS (23.9-36.7)
--- NOTE | 2025-10-01 20:05 | XRR_ITS ---
PROCEDURE INFORMATION: Exam: XR Chest Exam date and time: 10/01/2025 9:10 PM Age: 65 years old Clinical indication: Shortness of breath; Additional info: SOB TECHNIQUE: Imaging protocol: Radiologic exam of the chest. Views: 1 view. COMPARISON: CR (CHEST, ) 10/01/2025 11:38 AM FINDINGS: Lungs: Interval increased bilateral ground-glass and interstitial opacities greatest in the right lung base. Pleural spaces: Unremarkable. No pleural effusion. No pneumothorax. Heart/Mediastinum: Unremarkable. No cardiomegaly. Bones/joints: Unremarkable. XR/XR chest 1V portable [id number] IMPRESSION: As above.
--- NOTE | 2025-10-01 20:10 | ECG_ITS ---
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 Measurements Intervals [place] Rate: 95 P: 23 AL: 153 QRS: 46 QRSD: 98 T: 128 QT: 374 QTc: 472 Interpretive Statements SINUS RHYTHM MODERATE T-WAVE ABNORMALITY, CONSIDER ANTEROLATERAL ISCHEMIA [-0.1+ mV T-WAVE IN V3-V6] MILD QTC PROLONGATION Compared to ECG 10/01/2025 16:01:37 T-wave abnormality still present QTC PROLONGATION IS NEW Electronically Signed On 10-02-2025 15:15:06 OBSTETRICAL ANESTHESIOLOGIST by Santo Ellis M.D. [email or web address] [id number]
[2025-10-01] MEDS: FUROsemide 10 mg/mL SDV 4mL 40 MG IVP (20:28)
--- NOTE | 2025-10-01 20:45 | W.PM.OPSUD ---
Surgery/Procedure H&P Update DATE OF PROCEDURE: October 01, 2025 DATE H&P PERFORMED: 10/01/25 H&P UPDATE INFORMATION: I have reviewed H&P completed within last 30 days, I have examined patient prior to procedure and No changes to prior documentation PREOP DIAGNOSIS: NSTEMI/ Congestive heart failure PRIMARY INDICATION FOR PROCEDURE: NSTEMI/ Congestive heart failure PLANNED PROCEDURE: Operation Date: 10/02/25 07:30 Proposed Procedures p Cardiac Catheterization(Not Applicable) - Adilson Escobar M.D Possible percutaneous coronary intervention PATIENT REASSESSED PRIOR TO SEDATION, WITH NO CHANGE NOTED: Yes PHYSICAL EXAM: alert, oriented x 3 and regular rate & rhythm OTHER PERTINENT EXAM FINDINGS: Bilateral basal crackles AIRWAY EVAL/ANESTHESIA PLAN: normal airway, ASA III, Local Anesthesia, Risks, benefits & alternatives of sedation and/or procedure discussed and Patient agrees to continue as planned ADDITIONAL INFORMATION: Moderate sedation
[2025-10-01 20:59] LABS: Partial Thromboplastin Time 86.2 SECONDS (23.9-36.7)
--- NOTE | 2025-10-01 22:03 | P.PCN_ITS ---
Procedure Note: Date of procedure: 10/01/25 Pre-procedure diagnosis: NSTEMI/ Congestive heart failure Post-procedure diagnosis: other (Severe proximal LAD stenosis s/p PCI with 1 stent) Procedure: Severe proximal LAD stenosis status post PCI with 1 stent. Dual antiplatelet therapy with aspirin and Plavix. Guideline directed heart failure therapy Performing Provider: Adilson Escobar Estimated blood loss (mL): 10 Complications: None Condition: stable Disposition: floor Coding [facility]
[2025-10-01] MEDS: cefTRIAXone 1,000 mg SDV 1000 MG IVP (22:23)
[2025-10-01] MEDS: ondansetron 2 mg/ML SDV 2 mL 4 MG IVP (22:43)
--- NOTE | 2025-10-01 23:22 | PC.NURSE ---
at 2037 hospitalist notified that patient was sob with crackles and O2 sat in 80's, IV fluids dc'ed, cxr ordered, Dr Ellis also notified, ekg obtained and lasix ordered, Dr Escobar called by Dr Ellis and decision to take patient to director of cardiac cath lab, patient taken to director of cardiac cath lab appx 2100 and returned appx 2200 with right radial TR band
[2025-10-02] VITALS (23 sets, daily range): BP systolic 78–106; BP diastolic 49–72; PULSE 83–97; RESP 9–38; TEMP 36.6–36.8; O2SAT 89–97
--- NOTE | 2025-10-02 00:23 | ECG_ITS ---
[employer] Test Date: 2025-10-02 Pat Name: Jess Christensen Department: Room: 105 Gender: Female Podiatric Medicine Professor: : 1960 Requested By: Santo Ellis Order Number: [id number] Milligan MD: Santo Ellis M.D. Measurements Intervals [place] Rate: 88 P: 50 [place]: 164 QRS: 70 QRSD: 100 T: 135 QT: 444 QTc: 538 Interpretive Statements SINUS RHYTHM MODERATE T-WAVE ABNORMALITY, CONSIDER ANTEROLATERAL ISCHEMIA [-0.1+ mV T-WAVE IN V3-V6] PROLONGED QT INTERVAL Compared to ECG 10/01/2025 20:11:51 T WAVE INVERSIONS ARE MORE PRONOUNCED AND QTC PROONGATION HAS INCREASED Electronically Signed On 10-02-2025 15:12:38 SOLE ROUNDER by Santo Ellis M.D. [id number] [id number]
--- NOTE | 2025-10-02 02:48 | PC.NURSE ---
TR band removed 0200, dressing applied to site, no bleeding or hematoma noted, pulses palpable
[2025-10-02 03:40] LABS: Hematocrit 32.4 % (36-47); Hemoglobin 10.30 g/dL (11.27-16.99); Mean Corpuscular HGB Conc 31.8 g/dL (30-55); Mean Corpuscular Hemoglobin 27.6 pg (27-33); Mean Corpuscular Volume 86.9 fl (85-98); Nucleated Red Blood Cells % 0 %; Platelet Count 310 10^3/cmm (157-399); Red Blood Count 3.73 10^6/uL (3.85-5.65); White Blood Count 11.86 10^3/uL (3.29-11.43)
[2025-10-02 04:06] LABS: Anion Gap 12.6 (5-19); Blood Urea Nitrogen 21 mg/dL (8-23); Calcium 8.4 mg/dL (8.5-10.5); Carbon Dioxide 24 mmol/L (22-29); Chloride 105 mmol/L (98-107); Glucose 122 mg/dL (65-115); Magnesium 1.9 mg/dL (1.7-2.3); Osmolality Calculated 290 mOsm/kg (285-295); Potassium 3.6 mmol/L (3.5-5.1); Sodium 138 mmol/L (136-145)
[2025-10-02] MEDS: venlafaxine ER (24HR) 150 mg Capsule PO (04:21)
--- NOTE | 2025-10-02 09:19 | PC.NURSE ---
Talked with provider about her lower blood pressures and patient is lightheaded with movement and tired when it is low. Provider ordered normal saline bolus 1L. Order entered.
--- NOTE | 2025-10-02 11:01 | PC.NURSE ---
Stopped NS at [address] Ellis.
--- NOTE | 2025-10-02 11:06 | PM.PN ---
Subjective Subjective: Patient developed recurrence of chest pain and development of shortness of breath last night. CXR with new interstitial infiltrates, likely pulmonary edema. Patient was given Lasix 40mg IV x 1 and brought to the laborer adjustable steel joist where Bipap was used and the cath showed a severe LAD stenosis that was stented. Breathing improved but still with orthopnea and Pox dipping down to 90% on 2L. Not on home oxygen. Vitals/I&O/Wt Last Vital Signs Temp 97.9 F 10/02/25 07:53 Pulse 95 10/02/25 08:39 Resp 16 10/02/25 07:57 BP 99/60 10/02/25 08:39 Pulse Ox 91 10/02/25 07:57 O2 Del Method Nasal Cannula 10/02/25 07:57 O2 Flow Rate 2 10/02/25 07:57 FiO2 50 10/01/25 20:45 10/01/25 10/02/25 10/02/25 22:59 06:59 14:59 Intake Total 1162.533 / 5623.482 5949.467 / 2800.000 1360 / 1360 Output Total 400 / 400 Balance 1162.533 / 1662.533 737.467 / 2400.000 1360 / 1360 Weight last 48 hrs Weight 181 lb 10.574 oz Weight 186 lb 1.122 oz Weight 180 lb Physical Exam Narrative: General: In no acute distress Neck: No jugular venous distention or carotid bruits Heart: Normal S1 and S2 with a regular rate and rhythm, 2 out of 6 systolic murmur Lungs: Normal respiratory effort with no use of intercostal muscles, clear lungs sounds to auscultation Extremities: Trace left leg edema Neuro: Alert and oriented x 3 Data 10/02/25 03:02 10/02/25 03:02 A&P Assessment and plan 1. Acute non-ST elevation myocardial infarction (NSTEMI): s/p [facility] 10/01/2025: Cath with severe LAD stenosis s/p stenting ASA 81mg daily clopidogrel 75 mg daily start Atorvastatin 80mg qhs Metoprolol tartrate 12.5mg bid once BP >110/60 2. Essential hypertension: BP became hypotensive after Nitro paste yesterday and remains mildly low Holding all home antihypertensive medications at this time Developed pulmonary edema after some IVF - now on hold Do not want to give midodrine in setting of ACS 3. Left ventricular hypertrophy: Moderate basal septal hypertrophy (1.8 cm) with moderate LVOT obstruction with current hyperdynamic function of the basal myocardial segments Would like to start metoprolol 12.5mg bid as soon as BP >110/60 4. Acute heart failure with reduced ejection fraction (HFrEF): echo 10/01/2025: akinesis of all apical and mid LV segments with hyperdynamic basal segments, EF moderately reduced at 40% Unable to start typical CHF GDMT due to low BP Received one dose of IV lasix last night with improvement in SOB but still hypoxic Want to avoid dehydration due to the LVOT obstruction, but patient hypoxic with pulmonary edema and needs more lasix Lasix 20mg IV x 1 now Will redose Lasix IV prn 5. Acute hypoxic respiratory failure: PDMP PDMP Reviewed: Not Reviewed Attestations Medical Necessity Statement*: needs 2 more nights of hospitalization for ACS and acute CHF Coding Level of Care Code 36663 Diagnoses Acute non-ST elevation myocardial infarction (NSTEMI) I21.4 Essential hypertension I10 Left ventricular hypertrophy I51.7 Acute heart failure with reduced ejection fraction (HFrEF) I50.21 Acute hypoxic respiratory failure J96.01
--- NOTE | 2025-10-02 11:43 | PC.NURSE ---
Per Dr. Ellis lasix 20mg IVP is ordered.
[2025-10-02] MEDS: FUROsemide 10 mg/mL SDV 2mL 20 MG IVP (12:00)
[2025-10-02] MEDS: pantoprazole 40 mg SDV IVP (16:23)
--- NOTE | 2025-10-02 16:39 | PM.PN ---
Subjective Subjective: Jess Christensen is a 65 year old female with pmhx of HTN, NSTEMI, GERD, osteopenia, mitral valve prolapse, murmur, left hip and knee pain, and knee replacement presenting with complaints of chest pain. Patient endorses about 1 to 2 weeks of shortness of breath on exertion. Last night, in the process of moving between two locations she began having chest pain rated 4/10. This was exacerbated when she had a bowel movement with strain. She took a aspirin last night around 9:30 PM and went to bed. Any time she stands up to go to the bathroom she becomes shaky, lightheaded, pale, and diaphoretic with a feeling of heavy arms and near syncope. She also has nausea without vomiting and feels like there is a band going across her chest that radiates up her left neck more so than right. This morning, she did not take her home morning medications because she took her blood pressure and it was very low at 87/60. Symptoms persisted and EMS was called by family. Upon arrival, family states that EMS did an EKG and took vitals but ultimately advised patient that she should be fine after drinking Gatorade. They helped her out of the EMS vehicle and family took her here to [facility] ED via private vehicle. Family at bedside. Of note, patient does have a known history of diverticulosis and admits small amounts of sharon red blood in stool that she has had before. Patient is a of approximately 2 years and lives home alone in [facility] [place]. She has a lot of supportive family that lives close by. In the ED, BP 117/69, HR 72, RR 17, T98.3, O2 97. WBC 15.4, PLT 413, Hgb 12.8. BUN 27, creatinine 0.8. Glucose 196. Serial Troponin, initial 739, Troponin T 120 625.7, EKG; sinus rhythm, T wave abnormality rate 83. Chest xray; no acute cardiopulmonary abnormality. Patient endorses pain 2?3/10 in the ED. AAOX4, alert, and resting. Will admit to hospitalist service for further evaluation and treatment. Cardiology consulting. 10/02/25; Patient AAOx4 resting comfortably status post cardiac stent. Patient has had symptom improvement including no new syncope and is now able to lay flat. Still endorses fatigue. Cardiology on board. Planning for AM conditional discharge to home after Cardiology clearance. Vitals/I&O/Wt Last Vital Signs Temp 97.9 F 10/02/25 07:53 Pulse 96 10/02/25 12:00 Resp 14 10/02/25 12:00 BP 103/58 10/02/25 12:00 Pulse Ox 92 10/02/25 12:00 O2 Del Method Nasal Cannula 10/02/25 07:57 O2 Flow Rate 2 10/02/25 07:57 FiO2 50 10/01/25 20:45 10/02/25 10/02/25 10/02/25 06:59 14:59 22:59 Intake Total 1137.467 / 2800.000 1720 / 1720 Output Total 400 / 400 800 / 800 Balance 737.467 / 2400.000 920 / 920 Weight last 48 hrs Weight 82.4 kg Weight 84.4 kg Weight 81.647 kg Physical Exam Const: COMMON NORMALS: patient oriented x3 and alert GENERAL APPEARANCE: cooperative ORIENTATION/CONSCIOUSNESS: Yes awake HENMT: COMMON NORMALS: oropharynx normal Neck/C-Spine: COMMON NORMALS: no JVD Resp: COMMON NORMALS: normal respiratory effort and clear to auscultation bilaterally AUSCULTATION: clear to auscultation bilaterally Cardio: COMMON NORMALS: no JVD, regular rhythm, S1 normal heart sound present, S2 normal heart sound present and No murmurs present (Cardio) RHYTHM: regular rhythm HEART SOUNDS: S1 normal heart sound present and S2 normal heart sound present GI: COMMON NORMALS: Normal to inspection, nondistended, normoactive bowel sounds present, Soft to palpation and non-tender PALPATION: Yes Soft to palpation Extremity: COMMON NORMALS: no joint enlargement and no pedal edema OTHER: LLE post op dressing and elastic bandage. No swelling. Neuro: COMMON NORMALS: patient oriented x3 and moves all extremities SENSORIUM/ORIENTATION: Yes alert Skin: COMMON NORMALS: no rashes or lesions noted GENERAL SKIN EXAM: no rashes or lesions noted Data 10/02/25 03:02 10/02/25 03:02 A&P Assessment and plan 1. Acute non-ST elevation myocardial infarction (NSTEMI): 10/01/2025; left heart cath revealed severe LAD stenosis Status post stent Patient reports symptom improvement Per Cardiology: ASA 81mg daily, Clopidogrel 75 mg daily, and Atorvastatin 80mg qhs Metoprolol tartrate 12.5mg bid once BP >110/60 2. Chest pain: EKG; sinus rhythm, T wave abnormality rate 83 Serial Troponin, initial 739, Troponin T 120 625.7 Chest xray; no acute cardiopulmonary abnormality Past echo showed mild diastolic dysfunction and a normal EF - New echo pending Continue home ASA Telemetry Pain management Heparin started in ED Supplemental o2 Pulse oximetry NPO diet Cardiology being consulted by ED, Dr. Ellis, recommendations appreciated 3. Essential hypertension: History of hypertension On home losartan and amlodipine Holding home medication in setting of new hypotension Today 117/69 >> 90's systolic Monitor BP 4. Elevated BUN: Creatinine WNL at 0.8, BUN 27 Avoid nephrotoxic agents On home Lasix - hold in setting of hypotension Monitor CMP 5. Hyperglycemia: Glucose 156 No history of DM noted A1c PDMP PDMP Reviewed: Not Reviewed Attestations Medical Necessity Statement*: Continued hospitalization for observation status post cardiac stent. Planning for AM discharge. Diagnoses Acute non-ST elevation myocardial infarction (NSTEMI) I21.4 Chest pain R07.9 Essential hypertension I10 Elevated BUN R79.9 Hyperglycemia R73.9 Time Spent (min) 55
--- NOTE | 2025-10-02 17:53 | ECG_ITS ---
[email or web address] Date: 2025-10-02 Pat Name: Jess Christensen Department: Room: 105 Gender: Female Training Administrator: : 1960 Requested By: Santo Ellis Order Number: [id number] Srini MD: Santo Ellis M.D. Measurements Intervals [place] Rate: 90 P: 38 AK: 162 QRS: 44 QRSD: 103 T: 202 QT: 417 QTc: 512 Interpretive Statements SINUS RHYTHM POSSIBLE LEFT ATRIAL ENLARGEMENT [-0.1mV P-WAVE IN V1/V2] MODERATE T-WAVE ABNORMALITY, CONSIDER ANTEROLATERAL ISCHEMIA [-0.1+ mV T-WAVE IN V3-V6] MODERATE T-WAVE ABNORMALITY, CONSIDER INFERIOR ISCHEMIA [-0.1+ mV T-WAVE IN II/aVF] PROLONGED QT INTERVAL Compared to ECG 10/02/2025 00:23:35 Prolonged QTc interval not as prolonged Electronically Signed On 10-02-2025 18:03:00 TRACK MAN by Santo Ellis M.D. [id number]
--- NOTE | 2025-10-02 18:16 | PM.MISC ---
Miscellaneous Note Purpose of Documentation: QTc prolongation Note: Review of EKGs show prolongation of QTc interval up to 541 ms. Repeat EKG tonight shows mildly improved QTc. HOLD ALL QT PROLONGING MEDICATIONS FOR NOW I have discontinued Azithromycin and Ondansetron and put her venlafaxine on hold. Will start metoprolol as soon as blood pressure stable enough. Repeat EKG in am
[2025-10-02] MEDS: cefTRIAXone 1,000 mg SDV 1000 MG IVP (20:51)
[2025-10-03] VITALS (8 sets, daily range): BP systolic 98–108; BP diastolic 49–66; PULSE 81–104; RESP 12–23; TEMP 36.4–36.8; O2SAT 90–97
[2025-10-03 03:52] LABS: Platelet Count 265 10^3/cmm (157-399)
[2025-10-03 04:16] LABS: Magnesium 1.9 mg/dL (1.7-2.3)
--- NOTE | 2025-10-03 09:06 | ECG_ITS ---
[facility] Date: 2025-[facility]-03 Pat Name: Jess Christensen Department: Room: 105 Gender: Female Coagulator: : 1960 Requested By: Angélica Gabriel Order Number: [id number] Srini MD: Pooja Bright M.D. Measurements Intervals [place] Rate: 99 P: 60 NH: 145 QRS: 69 QRSD: 103 T: 180 QT: 291 QTc: 374 Interpretive Statements SINUS RHYTHM WITH FREQUENT ECTOPIC PREMATURE COMPLEXES POSSIBLE LEFT ATRIAL ENLARGEMENT [-0.1mV P-WAVE IN V1/V2] MODERATE T-WAVE ABNORMALITY, CONSIDER ANTEROLATERAL ISCHEMIA [-0.1+ mV T-WAVE IN V3-V6] Compared to ECG 10/02/2025 17:53:22 Prolonged QT interval no longer present T-wave abnormality still present Possible ischemia still present Electronically Signed On 10-06-2025 00:27:10 CHANNELING MACHINE RUNNER by Pooja Bright M.D. [id number]
--- NOTE | 2025-10-03 09:20 | XRR_ITS ---
PROCEDURE INFORMATION: Exam: XR Chest Exam date and time: 10/03/2025 11:02 AM Age: 65 years old Clinical indication: Shortness of breath TECHNIQUE: Imaging protocol: Radiologic exam of the chest. Views: 1 view. COMPARISON: CR (CHEST, ) 10/01/2025 9:10 PM FINDINGS: Lungs: Improvement in the appearance of the chest with resolution of previously seen interstitial opacities. Pleural spaces: Unremarkable. No pleural effusion. No pneumothorax. Heart/Mediastinum: Unremarkable. No cardiomegaly. Bones/joints: Unremarkable. XR/XR chest 1V portable [id number] IMPRESSION: Markedly improved chest x-ray.
--- NOTE | 2025-10-03 09:29 | P.PN_ITS ---
<Statement entered by Santo Ellis MD - 10/03/25 21:05> Patient was evaluated and cared for in conjunction with an advanced practice practitioner. I personally saw the patient and reviewed the chart and all pertinent data. I discussed the patient in detail with the advanced practice practitioner. Please see their note for complete assessment and agreed upon plan of care for the patient. Subjective 2 Subjective: She feels fatigued, but shortness of breath improved. She notes pounding of the heart when up to the bedside commode. No chest pain or pressure. Her blood pressure allowed the first dose of metoprolol this morning. Vitals/I&O/Wt Last Vital Signs Temp 97.6 F 10/03/25 07:54 Pulse 85 10/03/25 07:54 Resp 22 H 10/03/25 07:54 BP 107/49 10/03/25 07:54 Pulse Ox 95 10/03/25 07:54 O2 Del Method Nasal Cannula 10/03/25 07:54 O2 Flow Rate 2 10/02/25 07:57 FiO2 50 10/01/25 20:45 10/02/25 10/03/25 10/03/25 22:59 06:59 14:59 Intake Total 480 / 2200 480 / 480 Output Total 100 / 900 Balance 480 / 1300 -100 / 1300 480 / 480 Weight last 48 hrs Weight 183 lb 3.266 oz Weight 181 lb 10.574 oz Weight 186 lb 1.122 oz Weight 180 lb Physical Exam 2 Const: COMMON NORMALS: no acute distress and patient oriented x3 GENERAL APPEARANCE: cooperative and comfortable ORIENTATION/CONSCIOUSNESS: Yes awake, Yes oriented to person, Yes oriented to place and Yes oriented to time Chest: COMMONS NORMALS: normal inspection of the chest and normal palpation of entire chest wall CHEST: Yes Symmetrical chest wall rise Resp: COMMON NORMALS: normal respiratory effort, No retractions and No use of accessory muscles EFFORT & INSPECTION: Yes symmetric chest movement A USCULTATION: rales bilateral (anterior upper chest, clear bases and posterior) Cardio: COMMON NORMALS: regular rate, regular rhythm, S2 normal heart sound present, No gallops present (Cardio), No clicks present (Cardio) and No rub (Cardio) RATE: regular rate RHYTHM: regular rhythm HEART SOUNDS: S2 normal heart sound present and Murmur heart sound present systolic Intensity: II/ PERIPHERAL PULSES: radial pulses present Extremity: COMMON NORMALS: no pedal edema Neuro: COMMON NORMALS: patient oriented x3 and moves all extremities S ENSORIUM/ORIENTATION: Yes oriented to person, Yes oriented to place and Yes oriented to time Data 10/03/25 03:36 10/02/25 03:02 A&P Assessment and plan 1. Acute non-ST elevation myocardial infarction (NSTEMI): 2. Essential hypertension: 3. Left ventricular hypertrophy: 4. Acute heart failure with reduced ejection fraction (HFrEF): Plan: She appears improved. Discussed with her the QT prolongation, LVOT obstruction, Takotsubo and ischemic heart failure. We are diuresing gently so as to not provoke hypotension. Appears to be tolerating the initiation of beta dinesh. Will check 12 lead EKG and chest xray to assess improvement in pulmonary vascular congestion and for resolution of prolonged QT. Afternoon update: EKG showed ventricular bigeminy. Will keep her overnight, to adjust dose of beta dinesh. She has ambulated in the hallway without significant shortness of breath. Holding any QT prolonging medications. Will continue to watch blood pressure on the metoprolol tartrate. CXR pending read. PDMP PDMP Reviewed: Not Reviewed Attestations 2 Medical Necessity Statement*: GDMT heart failure, s/p stent LAD Coding Level of Care Code Acute Code for [facility]wd Diagnoses Acute non-ST elevation myocardial infarction (NSTEMI) I21.4 Essential hypertension I10 Left ventricular hypertrophy I51.7 Acute heart failure with reduced ejection fraction (HFrEF) I50.21
--- NOTE | 2025-10-03 10:43 | PC.OT ---
Pt seen for OT evaluation 10:32 to 10:37. Pt is A+Ox3 and reports no pain. Pt dons and doffs socks sitting at EOB with good dynamic sitting balance. Pt has no concerns going home and demonstrates good safety awareness. Pt has no further questions and no OT indicated due to patient's high level of independence.
--- NOTE | 2025-10-03 13:36 | P.PN_ITS ---
Subjective 2 Subjective: Patient is seen this morning medical floor, in the company of 2 family members. She is a 65-year-old female, and as per profession, who was admitted 2 days ago because of chest pain, and found to have an apparent NSTEMI. She had a left heart cath 2 days ago, => severe proximal LAD stenosis, with stent placement. Currently, she complains of generalized weakness with some mild dyspnea on exertion. Otherwise, she denies any complaints. However, cardiology had earlier seen her, and told her she may have some fluid overload. There was also some question about prolonged QT and other bigeminy noted by cardiology. Patient otherwise, expresses readiness to go home. Vitals/I&O/Wt Last Vital Signs Temp 98.3 F 10/03/25 11:13 Pulse 85 10/03/25 11:13 Resp 16 10/03/25 11:13 BP 106/66 10/03/25 11:13 Pulse Ox 95 10/03/25 11:13 O2 Del Method Room Air 10/03/25 11:13 O2 Flow Rate 0.5 10/03/25 10:00 FiO2 50 10/01/25 20:45 10/02/25 10/03/25 10/03/25 22:59 06:59 14:59 Intake Total 480 / 2200 720 / 720 Output Total 100 / 900 Balance 480 / 1400 -100 / 1300 720 / 720 Weight last 48 hrs Weight 83.1 kg Weight 82.4 kg Weight 84.4 kg Physical Exam 2 Narrative: General: Awake and alert. No obvious respiratory distress. Neuro/Psych: Cooperative. Oriented x 3 Chest/Resp: Bilateral equal air entry; chest clinically clear. No obvious basilar crackles. CVS: Rhythm: Regular heart rate and rhythm. No obvious murmurs appreciated. GI: Soft and non-tender abdomen. No obvious organomegaly. Extremities: Bilateral equal pulses. No obvious pitting pedal edema. Data 10/03/25 03:36 10/02/25 03:02 CXR: My impression: Chest x-ray done this morning reviewed by me. Issues very barely appreciated basilar fluffy opacities, which actually look less today compared to the Chest X-ray of 10/01/25, 2 days ago. Radiologist's impression: Radiologist interpretation pending. A&P Assessment and plan 1. Acute non-ST elevation myocardial infarction (NSTEMI): Status post PCI with coronary LAD stent placement. Currently on medical antiplatelets therapy, as expertly directed by cardiology. 2. Acute hypoxic respiratory failure: Resolved at this time. I was able to wean outpatient oxygen completely. Earlier hypoxial most likely due to hypoventilation vsextended stay in bed. With a clinically clear chest exam, close complete wean-off of oxygen, I am not particularly worried about this. 3. Cardiac dysrhythmia, unspecified: Cardiology reports some bigeminy with prolonged QT prolongation. Defer to nephro for advice on this. 4. Essential hypertension: BP currently soft. Patient's home antihypertensives currently held. Awaiting further advice from cardiology on this. Plan: Like mentioned above, patient is currently stable. I was able that she could be discharged today, but given the above cardiac problems, cardiology wants to watch patient for another day, and acute on bolus empirically; defer to them. PDMP PDMP Reviewed: Not Reviewed Attestations 2 Medical Necessity Statement*: Patient is considerately estimated to likely to require up to 1 more mid-night stay in the medical floor on inpatient status so as to hopefully optimally treat the acute medical problems and their symptoms and further control comorbidities. See Assessment and Plan as outlined above for more details. Coding Level of Care Code Acute Code for [facility] Diagnoses Acute non-ST elevation myocardial infarction (NSTEMI) I21.4 Acute hypoxic respiratory failure J96.01 Cardiac dysrhythmia, unspecified I49.9 Essential hypertension I10
[2025-10-03 14:18] LABS: Anion Gap 13.6 (5-19); Blood Urea Nitrogen 22 mg/dL (8-23); Calcium 8.2 mg/dL (8.5-10.5); Carbon Dioxide 24 mmol/L (22-29); Chloride 105 mmol/L (98-107); Glucose 109 mg/dL (65-115); NT Pro B Type Natriuretic Pept 12689 pg/mL (0-125); Osmolality Calculated 292 mOsm/kg (285-295); Potassium 3.6 mmol/L (3.5-5.1); Sodium 139 mmol/L (136-145)
[2025-10-03] MEDS: pantoprazole 40 mg SDV IVP (17:40)
[2025-10-03] MEDS: cefTRIAXone 1,000 mg SDV 1000 MG IVP (20:51)
[2025-10-04] VITALS (7 sets, daily range): BP systolic 98–111; BP diastolic 59–70; PULSE 72–90; RESP 16–22; TEMP 36.5–36.9; O2SAT 90–97
--- NOTE | 2025-10-04 06:00 | USCV_ITS ---
Jess Christensen Age: 65 Gender: F : 1960 Exam Date: 10/04/2025 02:04 Ordering Phys: Angélica Gabriel Technologist: MAKAYLA [place] [facility] [place]: Limited study to re-evaluate EF post cardiac catheterization. BP: 108 / 70 HR: 76 Rhythm: Sinus Technical Quality: Adequate MEASUREMENTS (Male / Female) Normal Values 2D ECHO LV Diastolic Diameter PLAX 3.6 cm 4.2 - 5.9 / 3.9 - 5.3 cm IVS Diastolic Thickness 2.0 cm 0.6 - 1.0 / 0.6 - 0.9 cm IVS Systolic Thickness 1.9 cm LVPW Diastolic Thickness 1.4 cm 0.6 - 1.0 / 0.6 - 0.9 cm LVPW Systolic Thickness 2.0 cm LVOT Diameter 1.8 cm LV Ejection Fraction 2D Teich 70.7 % LV Ejection Fraction MOD 4C 63.3 % LV Ejection Fraction MOD 2C 68.7 % LV Ejection Fraction 2C AL 68.7 % DOPPLER TV Peak Velocity 239.3 cm/s TR Peak Velocity 259.0 cm/s TR Peak Gradient 26.8 mmHg FINDINGS Left Ventricle Moderate concentric left-ventricular hypertrophy. Mild diffuse hypokinesis of the LV apex. Ejection fraction around 50% Right Ventricle Possibly normal size and ejection fraction Right Atrium Normal size Left Atrium Mildly increased left atrial size. IA Septum Appears to be intact Mitral Valve Thickened mitral valve. Mild mitral annular calcification. Aortic Valve No gross abnormalities noted Tricuspid Valve Mild tricuspid valve regurgitation. Pulmonic Valve No gross abnormalities noted Pericardium No pericardial effusion. Aorta Normal aortic annulus size. IVC Inferior vena cava not visualized. CONCLUSIONS Moderate concentric left-ventricular hypertrophy. Mild diffuse hypokinesis of the LV apex. Ejection fraction around 50%. Mildly increased left atrial size. The interatrial septum appears to be intact. Thickened mitral valve. Mild mitral annular calcification. Mild tricuspid valve regurgitation. There are no intracardiac masses. Compared to the study from 10/01/2025, the LV ejection fraction has improved from 40 to 50% Dr Pooja Bright MD [facility] (Electronically Signed) Final Date: 04 October 2025 16:23 S
[2025-10-04 07:10] LABS: Magnesium 2.1 mg/dL (1.7-2.3)
--- NOTE | 2025-10-04 09:05 | P.PN_ITS ---
<Statement entered by Adilson Escobar M.D - 10/09/25 13:26> Patient was cared for in conjunction with an advanced practice practitioner.? I reviewed the chart and all pertinent data including imaging, telemetry, and laboratory results.? I discussed the patient in detail with the advanced practice practitioner.? Please see? their documentation for progress note, testing results and agreed upon plan of care for the patient. Subjective 2 Subjective: She is breathing better, some scattered crackles. Will plan to discharge home today on metoprolol tartrate 12.5 BID and PRN Lasix 20mg daily. Vitals/I&O/Wt Last Vital Signs Temp 97.7 F 10/04/25 08:00 Pulse 77 10/04/25 08:00 Resp 18 10/04/25 08:00 BP 98/59 10/04/25 08:00 Pulse Ox 97 10/04/25 08:00 O2 Del Method Room Air 10/04/25 08:00 O2 Flow Rate 0.5 10/03/25 10:00 FiO2 50 10/01/25 20:45 10/03/25 10/04/25 10/04/25 22:59 06:59 14:59 Intake Total 480 / 1300 100 / 1300 240 / 240 Balance 480 / 1300 100 / 1300 240 / 240 Weight last 48 hrs Weight 182 lb 1.629 oz Weight 183 lb 3.266 oz Physical Exam 2 Const: COMMON NORMALS: no acute distress and patient oriented x3 GENERAL APPEARANCE: cooperative and comfortable ORIENTATION/CONSCIOUSNESS: Yes awake, Yes oriented to person, Yes oriented to place and Yes oriented to time Chest: COMMONS NORMALS: normal inspection of the chest and normal palpation of entire chest wall CHEST: Yes Symmetrical chest wall rise Resp: COMMON NORMALS: normal respiratory effort, No retractions and No use of accessory muscles EFFORT & INSPECTION: Yes symmetric chest movement A USCULTATION: crackles (scattered) Laterality: posterior Cardio: COMMON NORMALS: regular rate, regular rhythm, S2 normal heart sound present, No gallops present (Cardio), No clicks present (Cardio) and No rub (Cardio) RATE: regular rate RHYTHM: regular rhythm HEART SOUNDS: S2 normal heart sound present and Murmur heart sound present systolic Intensity: II/ PERIPHERAL PULSES: radial pulses present Extremity: COMMON NORMALS: no pedal edema Neuro: COMMON NORMALS: patient oriented x3 and moves all extremities S ENSORIUM/ORIENTATION: Yes oriented to person, Yes oriented to place and Yes oriented to time Data 10/03/25 03:36 10/03/25 03:36 A&P Assessment and plan 1. Acute heart failure with reduced ejection fraction (HFrEF): 2. Acute non-ST elevation myocardial infarction (NSTEMI): 3. Cardiomyopathy: Plan: She can discharge home today, with 2 week follow up with me. Continue metoprolol 12.5 mg BID. Will repeat limited echocardiogram in 2 weeks to assess LVEF. Continue aspirin, Plavix, atorvastatin. Instructions given for PRN Lasix, she understands well. Depending on blood pressure at follow up visit, will hope to add on Entresto, possibly spironolactone. Will discuss Jardiance/Farxiga as well. She plans to have sleep study as outpatient, sleep apnea suspected. PDMP PDMP Reviewed: Not Reviewed Attestations 2 Medical Necessity Statement*: dc today Coding Level of Care Code Acute Code for [place] Diagnoses Acute heart failure with reduced ejection fraction (HFrEF) I50.21 Acute non-ST elevation myocardial infarction (NSTEMI) I21.4 Cardiomyopathy I42.9
--- NOTE | 2025-10-04 12:40 | PM.DCS ---
Discharge Providers Date of Admission: 10/01/25 12:09 Date of Discharge: October 04, 2025 Attending Provider at Admission: Kaushal Marcus MD Attending Provider at Discharge: Kaushal Marcus MD Primary Care Provider: BREANNE Phan Diagnoses at Discharge Discharge Diagnosis 1. Acute non-ST elevation myocardial infarction (NSTEMI): 2. Acute heart failure with reduced ejection fraction (HFrEF): 3. Cardiomyopathy: Reason for Visit Reason for Visit: chest pressure / SOB Brief History: 65-year-old female presented with shortness of breath and chest pain. Given elevated troponin, she was diagnosed with acute NSTEMI. Hospital Course Hospital Course Patient was admitted to the telemetry floor, and monitored closely. Cardiac enzymes were trended per ACS protocol, with 2 EKGs repeated as needed. The chest pain symptoms were treated empirically; nitroglycerin, morphine, etc. Cardiology was consulted, who did a PCI with stent deployment in the LAD, following finding of severe LAD stenosis, etc. patient's hospital stay was complicated with some brief episodes of hypotension with associated bigeminy and prolonged QT intervals. 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 As of today, all the symptoms have all resolved. Patient was therefore recommended by cardiology for discharge. Physical Exam Narrative: General: Awake and alert patient. Resp: No obvious respiratory distress or difficulty breathing. Skin: No obvious rashes or new skin lesions. All other physical findings essentially within normal limits. Discharge Data Studies Completed and Pending Completed Studies During Hospitalization Category Date Time Status CXRP [XR chest 1V portable [id number]] Stat Exams 10/01/25 20:05 Completed XR chest 1V portable [id number] Routine Exams 10/03/25 09:20 Completed XR chest 1V portable [id number] Stat Exams 10/01/25 11:04 Completed CV. echo complete* [id number] Stat Ultrasound 10/01/25 11:59 Completed Pending at discharge Category Date Time Status FASHION MODEL request for service Routine Exams 10/01/25 20:36 Taken Platelet Count Q2D Lab 10/05/25 04:00 Ordered CV. echo limited [id number] Routine Ultrasound 10/04/25 06:00 Taken Radiology Impressions Chest X-Ray 10/03/25 09:20 IMPRESSION: Markedly improved chest x-ray. Vitals Last Vital Signs Temp 97.9 F 10/04/25 11:25 Pulse 72 10/04/25 11:25 Resp 18 10/04/25 11:25 BP 111/68 10/04/25 11:25 Pulse Ox 95 10/04/25 11:25 O2 Del Method Room Air 10/04/25 11:25 O2 Flow Rate 0.5 10/03/25 10:00 FiO2 50 10/01/25 20:45 Discharge Plan Discharge Patient Disposition: Home Condition: Stable Prescriptions: New atorvastatin 40 mg Tablet 80 mg PO BEDTIME Qty: 60 1RF clopidogrel 75 mg Tablet 75 mg PO DAILY Qty: 30 1RF metoprolol tartrate 25 mg Tablet 12.5 mg PO BID@0900,2100 Qty: 60 1RF Continued aspirin 325 mg tablet 325 mg PO DAILY PRN (Reason: Pain) nitroglycerin 0.4 mg tablet, sublingual 0.4 mg sublingual Q5M PRN (Reason: chest pain) Qty: 30 2RF Rx Instructions: do not exceed 3 doses per episode albuterol sulfate 2.5 mg /3 mL (0.083 %) solution for nebulization 2.5 mg inhalation QID PRN (Reason: shortness of breath or wheezing) Qty: 180 0RF amlodipine 10 mg tablet 10 mg PO DAILY Qty: 90 3RF Probiotic and Acidophilus 300-250 million cell-mg Capsule 1 cap PO PRN PRN (Reason: Digestion) venlafaxine 150 mg capsule,extended release 24hr 150 mg PO DAILY dexlansoprazole 60 mg capsule,biphase delayed releas 60 mg PO DAILY naproxen sodium 220 mg Tablet 440 mg PO BID PRN (Reason: Pain) potassium chloride 10 mEq capsule, extended release 10 meq PO DAILY PRN (Reason: when taking lasix) nystatin-triamcinolone 100,000-0.1 unit/gram-% ointment 1 applic topical BID PRN (Reason: Skin Irritation) furosemide [Lasix] 20 mg tablet 20 mg PO QAM PRN (Reason: Edema) Discontinued losartan-hydrochlorothiazide 100-25 mg tablet 1 tab PO DAILY Qty: 90 3RF 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 OK for DC: Cardiology Discharge Order = DC NOW: Discharge Order (Routine); Ordered 10/04/25 Ordered By: Kaushal Marcus Referrals: Joseline Alarcon FNP [Primary Care Provider, Family Practice] - 10/06/25 9:40 am Angélica Gabriel FNP [Nurse Practitioner, Cardiology] - 10/25/25 2:00 pm Discharge Diet: Cardiac and Diabetic Discharge Activity: Resume usual activity and Increase activity as tolerated Patient Instructions: Metoprolol (By mouth) (Lopressor, Toprol XL), Atorvastatin (By mouth) (Lipitor, Atorvaliq), Clopidogrel (By mouth) (Plavix), Chest Pain (DC), Coronary Angioplasty (DC), Coronary Angioplasty (DC), Opioid Safety, Post Angiogram Home Care Instructions, Patient Portal & Luis Enrique Instructions Discharge Attestations Time Spent in Discharge Care*: less than 30 min Quality Metrics Clinical Quality Measures [ Acute Myocardial Infaction { Clinical Trial Participant: No; Contraindication to aspirin: None; Aspirin prescribed; Contraindication to statin: None; Statin prescribed; Contraindication to PCI: None; PCI performed; Contraindication to Fibrinolytics: Alternative treatment initiated}] Coding Level of Care Code 45941 Diagnoses Acute non-ST elevation myocardial infarction (NSTEMI) I21.4 Acute heart failure with reduced ejection fraction (HFrEF) I50.21 Cardiomyopathy I42.9
== END 2025-10-04 13:26 | disposition home or self-care (01) | DRG 321 ==
LOC: ER 12:16 → CSU 12:19
PROVIDERS: Clinical Nurse Specialist Acute Care; Internal Medicine; Nurse Practitioner Family; Admitting Provider Family Medicine; Emergency Provider Family Medicine; PCP Nurse Practitioner Family; Visit Provider Family Medicine
PROC: 027034Z Dilation of Coronary Artery, One Artery with Drug-eluting Intraluminal Device, Percutaneous Approach (ICD-10-PCS; principal; 2025-10-01 21:00)
PROC: 027034Z Dilation of Coronary Artery, One Artery with Drug-eluting Intraluminal Device, Percutaneous Approach (ICD-10-PCS; 2025-10-01 21:00)
DX: I21.4 Non-ST elevation (NSTEMI) myocardial infarction (principal); I50.21 Acute systolic (congestive) heart failure; J96.01 Acute respiratory failure with hypoxia; I42.9 Cardiomyopathy, unspecified; I11.0 Hypertensive heart disease with heart failure; I25.10 Atherosclerotic heart disease of native coronary artery without angina pectoris; I95.9 Hypotension, unspecified; R94.31 Abnormal electrocardiogram [ECG] [EKG]; M85.80 Other specified disorders of bone density and structure, unspecified site; I34.1 Nonrheumatic mitral (valve) prolapse; K21.9 Gastro-esophageal reflux disease without esophagitis; M25.552 Pain in left hip; M25.562 Pain in left knee; Z96.659 Presence of unspecified artificial knee joint; K57.90 Diverticulosis of intestine, part unspecified, without perforation or abscess without bleeding; R73.9 Hyperglycemia, unspecified; Z79.82 Long term (current) use of aspirin; Z79.02 Long term (current) use of antithrombotics/antiplatelets; Z82.49 Family history of ischemic heart disease and other diseases of the circulatory system
CPT/HCPCS: 36415; 71045; 80048; 80053; 83735; 83880; 84100; 84484; 85025; 85049; 85347; 85730; 92978; 93005; 93306; 93308; 93454; 94660; 96365; 96366; 96374; 96375; 97161; 99152; 99153; 99285; C1725; C1753; C1769; C1874; C1887; C1894; C9600; J0456; J0696; J1644; J1938; J2250; J2371; J2405; J2470; J3010; J3490; J7030; J7040; J7050; J9999; Q9967

== ENCOUNTER → 2025-10-06 10:56 | Outpatient (BNVA) | payer OTHER, MEDICARE, SELFPAY | PROVIDERS: PCP Nurse Practitioner Family; Visit Provider Nurse Practitioner Family | DX: D64.9 Anemia, unspecified (principal) | CPT/HCPCS: 85025 ==

== ENCOUNTER 2025-10-18 11:02 | Outpatient (CLI) | payer OTHER, MEDICARE, SELFPAY ==
--- NOTE | 2025-10-18 11:15 | USCV_ITS ---
Jess Christensen Age: 65 Gender: F : 1960 Exam Date: 10/18/2025 11:25 Ordering Phys: Angélica Gabriel Technologist: Exam Location[place] [facility] [place] Indication: ef BP: 140 / 82 HR: Rhythm: Sinus Technical Quality: Adequate MEASUREMENTS (Male / Female) Normal Values 2D ECHO LV Diastolic Diameter PLAX 4.5 cm 4.2 - 5.9 / 3.9 - 5.3 cm IVS Diastolic Thickness 1.3 cm 0.6 - 1.0 / 0.6 - 0.9 cm IVS Systolic Thickness 1.8 cm LVPW Diastolic Thickness 1.4 cm 0.6 - 1.0 / 0.6 - 0.9 cm LVPW Systolic Thickness 1.2 cm LVOT Diameter 2.0 cm LV Ejection Fraction 2D Teich 63.7 % LV Ejection Fraction MOD 4C 67.7 % LV Ejection Fraction MOD 2C 64.1 % LV Ejection Fraction 2C AL 63.1 % LA Diameter 2.8 cm RA Systolic Volume 4C AL 31.1 ml RA Systolic Volume 4C MOD 29.6 ml Aorta at Sinotubular Diameter 3.1 cm IVC Diameter 2.3 cm M-MODE LA Ao Ratio MM 1.5 AV Cusp Separation MM 2.1 cm FINDINGS Left Ventricle Normal left ventricular size and systolic function, EF 64%.mild left ventricular hypertrophy. No regional wall motion abnormalities. . Right Ventricle Normal right ventricular size and systolic function. Right Atrium Normal right atrial size. Left Atrium Mildly increased left atrial size. IA Septum Normal interatrial septum. Mitral Valve Mild mitral annular calcification. Aortic Valve No gross abnormalities noted Tricuspid Valve No gross abnormalities noted Pulmonic Valve Pulmonic valve not well visualized. Pericardium No pericardial effusion. Aorta Normal aortic annulus size. IVC Inferior vena cava not visualized. CONCLUSIONS Normal left ventricular size and systolic function, EF 64%.mild left ventricular hypertrophy. No regional wall motion abnormalities. . Mildly increased left atrial size. Mild mitral annular calcification. There is no pericardial effusion. There are no intracardiac masses. Compared to the study from 10/04/2025, there is improvement of the LV ejection fraction Dr Pooja Bright MD [facility] (Electronically Signed) Final Date: 20 October 2025 08:48 S
== END 2025-10-18 11:03 | disposition home or self-care (01) ==
LOC: RAD 11:03
PROVIDERS: PCP Nurse Practitioner Family; Visit Provider Nurse Practitioner Family
DX: I21.4 Non-ST elevation (NSTEMI) myocardial infarction (principal); I50.21 Acute systolic (congestive) heart failure; I51.7 Cardiomegaly; I34.81 Nonrheumatic mitral (valve) annulus calcification
CPT/HCPCS: 93308

== ENCOUNTER → 2025-10-27 13:25 | Outpatient (BNVA) | payer OTHER, MEDICARE, SELFPAY | PROVIDERS: PCP Nurse Practitioner Family; Visit Provider Nurse Practitioner Women's Health | DX: I51.7 Cardiomegaly (principal); Z12.4 Encounter for screening for malignant neoplasm of cervix; M85.88 Other specified disorders of bone density and structure, other site | CPT/HCPCS: 87624 ==

== ENCOUNTER 2025-11-08 13:03 | Outpatient (CLI) | payer OTHER, MEDICARE, SELFPAY | END 2025-11-08 13:04 | disposition home or self-care (01) | LOC: SLEEP 13:04 | PROVIDERS: Referring Provider Nurse Practitioner Family; Visit Provider Internal Medicine Pulmonary Disease | DX: G47.33 Obstructive sleep apnea (adult) (pediatric) (principal); G47.36 Sleep related hypoventilation in conditions classified elsewhere | CPT/HCPCS: G0399 ==

== ENCOUNTER 2025-11-15 15:02 | Outpatient (RCR) | payer OTHER, MEDICARE, SELFPAY | END 2025-11-16 23:59 | disposition home or self-care (01) | LOC: TPT 15:02 | PROVIDERS: Visit Provider Nurse Practitioner Family | DX: I10 Essential (primary) hypertension (principal); I51.7 Cardiomegaly | CPT/HCPCS: 97110; 97161 ==

== ENCOUNTER → 2025-11-16 13:19 | Outpatient (BNVA) | payer OTHER, MEDICARE, SELFPAY | PROVIDERS: PCP Family Medicine; Visit Provider Nurse Practitioner Family | DX: D64.9 Anemia, unspecified (principal) | CPT/HCPCS: 82306; 84443; 85025 ==